=== PATIENT | male | born 1980 | race African-American/Black ===

== ENCOUNTER 2016-10-11 10:23 | Inpatient (IN) | payer BC ==
[2016-10-11 10:36] VITALS: BMI 22.4
[2016-10-11] MEDS ORDERED: ONDANSETRON 4 MG/2 ML VIAL IVPB ONE (11:08)
[2016-10-11] MEDS ORDERED: SODIUM CHLORIDE 1,000 ML IV ONE ×2 (11:08→12:14)
[2016-10-11] MEDS ORDERED: FAMOTIDINE 20 MG/50 ML IVPB 50 ML IVPB ONE ×2 (11:08→11:20)
[2016-10-11] MEDS ORDERED: ONDANSETRON 4 MG/2 ML VIAL ONE (11:20)
[2016-10-11 11:25] LABS: MCH 24.8 pg (25.7-33.7); MCHC 33.3 g/dl (32.0-35.9); MEAN CELL VOLUME 74.5 fl (80-96); MEAN PLT VOLUME 7.1 fl (7.5-11.1); PLATELET COUNT 338 K/MM3 (134-434); RDW 14.5 % (11.9-15.9); WHITE BLOOD COUNT 3.5 K/mm3 (4.0-10.0)
--- NOTE | 2016-10-11 11:35 | PDOC ---
History of Present Illness - General History Source: Patient Exam Limitations: No Limitations - History of Present Illness Initial Comments: 10/11/16 11:44 The patient is a 36-year-old man with a past medical history of nasopharyngeal Ca (since age 10; was on chemotherapy and radiation; now in remission)who presents to the emergency department for evaluation of generalized weakness for the past 4 days. As per patient, he reports he was recently getting over a sinus infection for which he took 875 mg of Augmentin. His prescribed dosage was 1 tablet BID, however the patient took 2 tablets BID, (overall intake of 5 double doses). He reports that he started taking his Augmentin regularly since , however he vomited this morning's dose. Patient notes that approximately four days ago, he started to experience diffuse abdominal discomfort with associated nausea, vomiting and loose watery stools (dark green in appearance; no blood). Patient states that his symptoms have progressively worsened as he feels generally weak, experiences chills and is unable to tolerate anything PO. He expresses concern as if his symptoms are related to taking too much Augmentin. Patient also admits to sick contacts, as his fellow co-workers are experiencing cold-like symptoms. No new foods. He recently traveled to [facility] (May 2016). No other complaints. He denies chest pain, cough, shortness of breath, headache He denies dysuria, hematuria, urinary frequency/urgency, flank pain. Allergies: None Known Past Surgical History: None reported Social History: No tobacco, ETOH and recreational drug use. Primary Care Physician: Located at [facility]. <Gracia Marquis - Last Filed: 10/11/16 11:47> <Miguel Sher - Last Filed: 10/11/16 15:47> - General Chief Complaint: Weakness Stated Complaint: WEAKNESS, VOMITING Time Seen by Provider: 10/11/16 11:03 Past History <Gracia Marquis - Last Filed: 10/11/16 11:47> - Past Medical History Cancer: Yes (SINO NASAL CA) - Psycho/Social/Smoking Cessation Hx Anxiety: No Suicidal Ideation: No Smoking History: Never smoked Have you smoked in the past 12 months: No Hx Alcohol Use: No Drug/Substance Use Hx: No Substance Use Type: None <Miguel Sher - Last Filed: 10/11/16 15:47> - Past Medical History Allergies/Adverse Reactions: Allergies Allergy/AdvReac Type Severity Reaction Status Date / Time No Known Allergies Allergy Verified 10/11/16 10:36 Home Medications: Ambulatory Orders Amoxicillin/Potassium Clav [Amox-Clav 875-125 mg Tablet] 1 each PO BID 10/11/16 Review of Systems - Review of Systems Constitutional: Yes: Chills. No: Fever HEENTM: Yes: Nose Congestion Respiratory: No: Cough, Shortness of Breath Cardiac (ROS): Yes: Lightheadedness. No: Syncope ABD/GI: Yes: See HPI, Diarrhea, Nausea, Vomiting All Other Systems: Reviewed and Negative <Miguel Sher - Last Filed: 10/11/16 15:47> *Physical Exam - Vital Signs Last Vital Signs Temp Pulse Resp BP Pulse Ox 97.7 F 68 20 103/57 100 10/11/16 10:31 10/11/16 10:31 10/11/16 10:31 10/11/16 10:31 10/11/16 10:31 - Physical Exam Comments: 10/11/16 11:45 GENERAL: The patient is awake, alert, and fully oriented, in no acute distress. HEAD: Normal with no signs of trauma. EYES: Pupils equal, round and reactive to light, extraocular movements intact, sclera anicteric, slight conjunctival pallor. ENT: Ears normal, nares patent, oropharynx clear without exudates. Dry mucous membranes. NECK: Normal range of motion, supple without lymphadenopathy, JVD, or masses. LUNGS: Breath sounds equal, clear to auscultation bilaterally. No wheeze/ crackles. HEART: Regular rate and rhythm, normal S1 and S2 without murmur or rub. ABDOMEN: Soft. There is some epigastric discomfort. Nondistended. BS wnl. No guarding or rebound. No palpable masses. No hepatosplenomegaly. EXTREMITIES: Normal range of motion, no edema. No clubbing or cyanosis. No cords, erythema, or tenderness. NEUROLOGICAL: Cranial nerves II through XII grossly intact. Normal speech. PSYCH: Normal mood, normal affect. SKIN: Warm, Dry, normal turgor, no rashes or lesions noted. <Gracia Marquis - Last Filed: 10/11/16 11:47> - Vital Signs Last Vital Signs Temp Pulse Resp BP Pulse Ox 97.7 F 68 20 103/57 100 10/11/16 10:31 10/11/16 10:31 10/11/16 10:31 10/11/16 10:31 10/11/16 10:31 <Miguel Sher - Last Filed: 10/11/16 15:47> Heart Score/ECG Review #1 ECG reviewed & interpreted by me at: 11:29 General ECG Interpretation: Sinus Rhythm, Normal Rate (61), Normal Intervals ( ID [id number], QTC 410), No acute ischemic changes <Miguel Sher - Last Filed: 10/11/16 15:47> ED Treatment Course - LABORATORY CBC & Chemistry Diagram: 10/11/16 11:15 10/11/16 11:15 - ADDITIONAL ORDERS Additional order review: 10/11/16 11:15 RBC 4.05 MCV 74.5 L MCHC 33.3 RDW 14.5 MPV 7.1 L Neutrophils % Y Lymphocytes % Y - Medications Given in the ED: ED Medications Discontinued Medications Generic Name Dose Route Start Last Admin Trade Name Freq PRN Reason Stop Dose Admin Famotidine/Sodium Chloride 50 mls @ 100 mls/hr 10/11/16 11:08 10/11/16 11:20 Pepcid 20 Mg Premixed Ivpb - IVPB 10/11/16 11:37 100 mls/hr ONCE ONE Administration Ondansetron HCl 8 mg 10/11/16 11:08 10/11/16 11:39 Zofran Injection IVPB 10/11/16 11:09 8 mg ONCE ONE Administration <Gracia Marquis - Last Filed: 10/11/16 11:47> - LABORATORY CBC & Chemistry Diagram: 10/11/16 11:15 10/11/16 14:00 - ADDITIONAL ORDERS Additional order review: 10/11/16 11:15 RBC 4.05 MCV 74.5 L MCHC 33.3 RDW 14.5 MPV 7.1 L Neutrophils % Y Lymphocytes % Y <Miguel Sher - Last Filed: 10/11/16 15:47> Medical Decision Making - Medical Decision Making 10/11/16 11:32 A portion of this note was documented by scribe services under my direction. I have reviewed the details of the note, within reason, and agree with the documentation with the following case summary and management plan written by me. 36-year-old male with distant history of nasopharyngeal CA 2011, now in remission, presents with nausea/vomiting/diarrhea in the setting of taking Augmentin for recently diagnosed sinusitis. Generalized crampy abdominal pain, now resolved. Unable to tolerate by mouth, reports persistent nonbloody vomiting and diarrhea and worsening lightheadedness. No travel, positive sick contacts at work, no diet changes. Vitals as noted, had orthostatic episode in triage. Dry mucosa, slight pallor Epigastric discomfort without guarding or rebound 36-year-old male on antibiotics presents with several days of nausea/vomiting/ diarrhea, now with dehydration. Prior generalized abdominal cramping without focal findings on exam. Presentation seems more consistent with acute gastroenteritis, question antibiotic side effect. Check labs IV fluid hydration, antacid, antiemetic EKG shows no interval abnormalities other than first-degree AV block, no acute ischemic changes Reassess 10/11/16 12:11 White count 3.5, Baseline mild anemia with hemoglobin of 10. Chemistries note dehydration with significant hyponatremia of 113, BUN and creatinine are otherwise normal. Received IV fluids, will continue maintenance, will require admission for sodium repletion and monitoring. 10/11/16 12:17 Accepted for inpatient med/surg by Dr. Barber. <Miguel Sher - Last Filed: 10/11/16 15:47> *DC/Admit/Observation/Transfer - Attestations Scribe Attestion: 10/11/16 11:45 Documentation prepared by Gracia Marquis, acting as medical reviewer for Miguel Sher MD. <Gracia Marquis - Last Filed: 10/11/16 11:47> - Discharge Dispostion Admit: Yes <Miguel Sher - Last Filed: 10/11/16 15:47> Diagnosis at time of Disposition: Gastroenteritis, Hyponatremia - Referrals
--- NOTE | 2016-10-11 11:46 | EKG ---
Test Reason : Blood Pressure : / mmHG Vent. Rate : 061 BPM Atrial Rate : 061 BPM P-R Int : 232 ms QRS Dur : 090 ms QT Int : 408 ms P-R-T Axes : 051 079 068 degrees QTc Int : 410 ms SINUS RHYTHM WITH 1ST DEGREE A-V BLOCK OTHERWISE NORMAL ECG WHEN COMPARED WITH ECG OF 04-OCT-2015 11:46, NM INTERVAL HAS INCREASED Confirmed by MARY العراقي, REHANA ([id number]) on 10/11/2016 11:45:57 AM Referred By: Confirmed By:REHANA HERNANDEZ MD
[2016-10-11 11:57] LABS: ALBUMIN 3.5 g/dl (3.4-5.0); ALK PHOS 102 U/L (45-117); ANION GAP 13 (8-16); BILIRUBIN,TOTAL 0.5 mg/dL (0.2-1.0); CALCIUM 8.7 mg/dL (8.5-10.1); CO2 22 mmol/L (21-32); CREATININE 1.1 mg/dL (0.7-1.3); GLUCOSE,RANDOM 89 mg/dL (74-106); SGOT/AST 23 U/L (15-37); SGPT/ALT 19 U/L (12-78); TOT PROT 7.5 g/dl (6.4-8.2)
[2016-10-11 13:02] LABS: METAMYELOCYTE 2 % (0-2)
--- NOTE | 2016-10-11 13:15 | HP ---
CHIEF COMPLAINT: Weakness HISTORY OF PRESENT ILLNESS: This is a 36-year-old man who comes to the ER today complaining of weakness. He says that he was recently diagnosed with sinusitis. He was prescribed Augmentin 875 twice a day for 14 days. When he filled the prescription on October 02, the instructions were to take two tabs twice a day for 14 days. He was given 28 tablets. For the first 6 doses, he took two tabs, then he spoke with his physician who told him the prescription was supposed to be 1 tab twice a day. He advised him to continue with the medication using the appropriate dosing. For the last 4 days, he has been experiencing abdominal pain , nausea, vomiting and diarrhea. His symptoms have worsened, and now he is experiencing fatigue, weakness and chills. He has been unable to keep anything down. PAST MEDICAL HISTORY Nasopharyngeal cancer (diagnosed in 2011, treated with chemo/XRT, in remission, follows at [facility]) PAST SURGICAL HISTORY Mediport placement Allergies No Known Allergies Allergy (Verified 10/11/16 10:36) HOME MEDICATIONS 3 Medication Instructions Recorded Amoxicillin/Potassium Clav 1 each PO BID 10/11/16 [Amox-Clav 875-125 mg Tablet] Social History: Smoking: Never smoked Alcohol: Denies Drugs: Denies Recent Travel: [facility] in May 2016 Family History: Non-contributory REVIEW OF SYSTEMS CONSTITUTIONAL: Present: chills, generalized weakness. Absent: fever, diaphoresis, malaise, loss of appetite, weight change HEENT: Absent: rhinorrhea, nasal congestion, throat pain, throat swelling, difficulty swallowing, mouth swelling, ear pain, eye pain, visual changes CARDIOVASCULAR: Absent: chest pain, syncope, palpitations, lightheadedness, peripheral edema RESPIRATORY: Absent: cough, shortness of breath, dyspnea with exertion, orthopnea, wheezing, stridor, hemoptysis GASTROINTESTINAL: Present: abdominal pain, nausea, vomiting, diarrhea. Absent: abdominal distension, nausea, vomiting, diarrhea, constipation, melena, hematochezia GENITOURINARY: Absent: dysuria, frequency, urgency, hesitancy, hematuria, flank pain, genital pain MUSCULOSKELETAL: Absent: myalgia, arthralgia, joint swelling, back pain, neck pain SKIN: Absent: rash, itching, pallor HEMATOLOGIC/IMMUNOLOGIC: Absent: easy bleeding, easy bruising, lymphadenopathy, frequent infections ENDOCRINE: Absent: unexplained weight gain, unexplained weight loss, heat intolerance, cold intolerance NEUROLOGIC: Absent: headache, focal weakness or paresthesias, dizziness, unsteady gait, seizure, mental status changes, bladder or bowel incontinence PSYCHIATRIC: Absent: anxiety, depression, suicidal or homicidal ideation, hallucinations. PHYSICAL EXAMINATION Vital Signs Period Temp Pulse Resp BP Sys/Stein Pulse Ox Last 24 Hr 97.7 F 68 20 103/57 100 GENERAL: Awake, alert, and fully oriented, in no acute distress. HEAD: Normal with no signs of trauma. EYES: Pupils equal, round and reactive to light, extraocular movements intact, sclerae anicteric, conjunctivae clear. EARS, NOSE, THROAT: Ears normal, nares patent, oropharynx clear without exudates. Moist mucous membranes. NECK: Normal range of motion, supple without lymphadenopathy, JVD, or masses. LUNGS: Breath sounds equal, clear to auscultation bilaterally. No wheezes, and no crackles. No accessory muscle use. HEART: Regular rate and rhythm, normal S1 and S2 without murmur, rub or gallop. ABDOMEN: Soft, nontender, not distended, normoactive bowel sounds, no guarding, no rebound, no masses. No hepatomegaly or splenomegaly. MUSCULOSKELETAL: Normal range of motion at all joints. No bony deformities or tenderness. No CVA tenderness. UPPER EXTREMITIES: 2+ pulses, warm, well-perfused. No cyanosis. No clubbing. Cap refill <2 seconds. No peripheral edema. LOWER EXTREMITIES: 2+ pulses, warm, well-perfused. No calf tenderness. No peripheral edema. NEUROLOGICAL: Cranial nerves II-XII intact. Normal speech. Gait not observed. PSYCHIATRIC: Cooperative. Good eye contact. Appropriate mood and affect. SKIN: Warm, dry, normal turgor, no rashes or lesions noted. Laboratory Results - last 24 hr 10/11/16 10/11/16 11:15 11:15 WBC 3.5 L D RBC 4.05 Hgb 10.0 L Hct 30.1 L MCV 74.5 L MCHC 33.3 RDW 14.5 Plt Count 338 MPV 7.1 L Neutrophils % 59.0 D Lymphocytes % 30.0 D Monocytes % 4.0 Eosinophils % 4.0 D Metamyelocytes 2 Myelocytes 1 Differential Comment Manual diff done Sodium 113 L* D Potassium 3.8 Chloride 78 L D Carbon Dioxide 22 D Anion Gap 13 BUN 11 D Creatinine 1.1 D Creat Clearance w eGFR > 60 Random Glucose 89 D Calcium 8.7 Total Bilirubin 0.5 D AST 23 ALT 19 Alkaline Phosphatase 102 Total Protein 7.5 Albumin 3.5 Lipase 51 L EKG: Sinus rhythm, rate 61 ASSESSMENT/PLAN: This is a 36-year-old man with a history of naopharyngeal cancer treated with chemotherapy and radiation therapy at [facility] who presented to the ER with fatigue , weakness, chills, epigastric pain, nausea and vomiting. He has been taking Augmentin since 10/02 for sinusitis. He was found to have a sodium of 113. He is being admitted now for treatment of an emergent condition. 1. Severe hyponatremia - Asymptomatic and appears euvolemic - Admit to ICU - Repeat sodium - Check serum osmolality, urine lytes, urine osmolality - Continue IV normal saline - Discontinue Augmentin - Check chest x-ray - Serial BMPs - Critical care, nephrology consults 2. Abdominal pain, nausea, vomiting, diarrhea - Likely secondary to hyponatremia, Augmentin - IV fluid - Clear liquid diet - Zofran as needed Problem List - Problem (1) Chills Code(s): R68.83 - CHILLS (WITHOUT FEVER) (2) History of nasopharyngeal cancer Code(s): Z85.819 - PRSNL HX OF MALIG NEOPLM OF UNSP SITE LIP,ORAL CAV,& PHARYNX (3) Nausea, vomiting and diarrhea Code(s): R11.2 - NAUSEA WITH VOMITING, UNSPECIFIED R19.7 - DIARRHEA, UNSPECIFIED Visit type - Emergency Visit Emergency Visit: Yes ED Registration Date: 10/11/16 Care time: The patient presented to the Emergency Department on the above date and was hospitalized for further evaluation of their emergent condition. - New Patient This patient is new to me today: Yes Date on this admission: 10/11/16 - Critical Care Critical Care patient: Yes Total Critical Care Time (in minutes): 45 Critical Care Statement: The care of this patient involved high complexity decision making to prevent further life threatening deterioration of the patient 's condition and/or to evalute & treat vital organ system(s) failure or risk of failure.
[2016-10-11] MEDS ORDERED: ACETAMINOPHEN 325 MG TABLET (FP) PO PRN (13:23)
[2016-10-11] MEDS ORDERED: ONDANSETRON 4 MG/2 ML VIAL IVPB PRN (13:23)
[2016-10-11 14:51] LABS: CALCIUM 8.4 mg/dL (8.5-10.1); CREATININE 1.1 mg/dL (0.7-1.3)
--- NOTE | 2016-10-11 15:17 | CONSULT ---
Consult Consult Specialty:: pulm/CCM Referred by:: Dr. Barber Reason for Consultation:: Severe hyponatremia - History of Present Illness Chief Complaint: Vomting weakness History of Present Illness: 36M history of nasopharyngeal Ca since 2011, in remission followed at [facility], come to ED with Chief complaint of weakness and vomiting. Recently had CT scan at [facility] for surveillance and everything ok from cancer standpoint but was found to have sinusitis and was prescribed augmentin. patient took double the dose for 6 days as the prescription per patient said to do so but upon talking to MD who prescribed he was supposed to take 1 tab. For the past 4 days he has been complaining of abdominal pain, nausea, vomiting and diarrhea. he has been unable to tolerate PO as well. he has been having NB/NB vomiting. he also endorses worsening symptoms with chills but denies fever. He denies dizziness or any other symptoms. Denies substance abuse. denies polydipsia. Found to have severe hyponatremia in ED with sodium of 113. admitted to ICU for monitoring. - History Source History Provided By: Patient Limitations to Obtaining History: No Limitations - Past Medical History Heme/Onc: Yes: Other (nasopharyngeal Ca since 2011 in remission ) - Alcohol/Substance Use Hx Alcohol Use: No - Smoking History Smoking history: Never smoked Have you smoked in the past 12 months: No Home Medications - Allergies Allergies/Adverse Reactions: Allergies Allergy/AdvReac Type Severity Reaction Status Date / Time No Known Allergies Allergy Verified 10/11/16 10:36 - Home Medications Home Medications: Ambulatory Orders Amoxicillin/Potassium Clav [Amox-Clav 875-125 mg Tablet] 1 each PO BID 10/11/16 Review of Systems - Review of Systems Constitutional: reports: Chills Eyes: reports: No Symptoms HENT: reports: No Symptoms Neck: reports: No Symptoms Cardiovascular: reports: No Symptoms Respiratory: reports: No Symptoms Gastrointestinal: reports: Abdominal Pain, Nausea, Vomiting Genitourinary: denies: No Symptoms, Burning, Discharge, Dysuria, Flank Pain, Frequency, Hematuria, Incontinence, Lesions, Menses, Pain, Testicular Mass, Testicular Pain, Testicular Swelling, Urgency, Vaginal Bleeding, Other Musculoskeletal: denies: No Symptoms, Back Pain, Crepitus, Decreased ROM, Extremity Pain, Joint Pain, Joint Swelling, Muscle Pain, Muscle Cramps, Muscle Weakness, Other Neurological: denies: No Symptoms, Change in LOC, Change in Speech, Confusion, Dizziness, Headache, Incoordination, Numbness, Parasthesia, Pre-Existing Deficit , Seizure, Syncope, Tremors, Unsteady Gait, Weakness, Other Endocrine: denies: No Symptoms, Excessive Sweating, Flushing, Increased Hunger, Increased Thirst, Intolerance to Cold, Intolerance to Heat, Unexplained Weight Gain, Unexplained Weight Loss, Other Physical Exam Vital Signs: Vital Signs Temperature 97.9 F 10/11/16 14:30 Pulse Rate 68 10/11/16 14:30 Respiratory Rate 19 10/11/16 14:30 Blood Pressure 120/74 10/11/16 14:30 O2 Sat by Pulse Oximetry (%) 100 10/11/16 14:30 Constitutional: Yes: Well Nourished, No Distress, Calm Eyes: Yes: Conjunctiva Clear, EOM Intact HENT: Yes: WNL, Atraumatic, Normocephalic Neck: Yes: Supple, Trachea Midline Cardiovascular: Yes: Regular Rate and Rhythm Respiratory: Yes: CTA Bilaterally Gastrointestinal: Yes: Soft. No: Tenderness Musculoskeletal: Yes: WNL Extremities: Yes: WNL Edema: No Neurological: Yes: WNL, Alert, Oriented, Cran Nerves II-XII Intact, Other ( global muscle strength 5/5 and symmetric) Labs: CBC, [facility] 10/11/16 14:00 Imaging - Results Chest X-ray: Pending Assessment/Plan 36M with pmh of nasopharyngeal Ca in remission here with nausea vomiting and found to have severe symptomatic hyponatremia. Severe hyponatremia which is symptomatic with nausea and vomiting. Patient has euvolemic hyponatremia symptomatic with nausea and vomiting It is possible patient has a paraneoplatic syndrome given his Ca but it is unlikely given he is monitored at [facility] and has not had any relapse of his Ca and had recent CT which did not show Ca will get CXR to evaluate any suspicion of mets to the chest Could Be SIADH will consider neuroimaging and desmopressin in future for now normal saline @ 125ml/hr Do not allow sodium to go above 123 for 24 hours q4h [facility] Patient recently on augmentin-discontinued as of today during my research it was found there are a few documented cases of hyponatremia secondary to augmentin although this is rare it is possible given the fact he was taking double the dose and then developed these symptoms Zofran will consider endocrine consult in future if refractory f/u nephrology consult Diarrhea:improving per patient do not suspect infectious source such as C dif or colitis no need for Abx at this time monitor Nasopharyngeal Ca: patient has follow up and is compliant outpt follow up FEN: NS @ 125ml/hr Hyperkalemia hyponatremia-trend BMP q4h CLD PPx: HSQ no GI PPx needed no deconditioning issues CCTime 45min
[2016-10-11] MEDS ORDERED: SODIUM CHLORIDE 1,000 ML IV SCH (16:15)
--- NOTE | 2016-10-11 19:14 | CONSULT ---
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 He says that the cancer is in remission. He was treated with radiation and chemotherapy. He last had a ct scan of the head about one week ago and was negative for re-occurrence. It did however show some sinusitis. He was given augmentin. He was taking 2 tabs BID as that is what the bottle said to do. He developed abdominal discomfort and diarrhea. He had multiple episodes of diarrhea for several days. This was alos accompanied with vomiting. He denies fever or chills. He complains of generalized weakness. He was found to be hyponatremic and I was called to evaluate him as stat consult. He denies headache. He is awake and alert. He denies change in vision. He denies history of hyponatremia. - History Source History Provided By: Patient, Medical Record - Past Medical History Heme/Onc: Yes: Other (sinus cancer) Infectious Disease: Yes: Other (sinusitis) - Alcohol/Substance Use Hx Alcohol Use: No - Smoking History Smoking history: Never smoked Have you smoked in the past 12 months: No Home Medications - Allergies Allergies/Adverse Reactions: Allergies Allergy/AdvReac Type Severity Reaction Status Date / Time No Known Allergies Allergy Verified 10/11/16 10:36 - Home Medications Home Medications: Ambulatory Orders Amoxicillin/Potassium Clav [Amox-Clav 875-125 mg Tablet] 1 each PO BID 10/11/16 Family Disease History - Family Disease History Family History: Denies Review of Systems - Review of Systems Constitutional: reports: Loss of Appetite, Malaise, Weakness Eyes: reports: No Symptoms HENT: reports: No Symptoms Neck: reports: No Symptoms Cardiovascular: reports: No Symptoms Respiratory: reports: No Symptoms Gastrointestinal: reports: Abdominal Pain, Diarrhea, Vomiting. denies: Vomiting Blood Genitourinary: reports: No Symptoms Musculoskeletal: reports: Muscle Weakness Neurological: reports: No Symptoms Endocrine: reports: No Symptoms Hematology/Lymphatic: reports: No Symptoms Psychiatric: reports: No Symptoms Physical Exam Vital Signs: Vital Signs Temperature 97.9 F 10/11/16 14:30 Pulse Rate 67 10/11/16 17:40 Respiratory Rate 18 01/18/17 17:40 Blood Pressure 124/85 01/18/17 17:40 O2 Sat by Pulse Oximetry (%) 100 10/11/16 18:00 Constitutional: Yes: Calm Eyes: Yes: Conjunctiva Clear HENT: Yes: Atraumatic Cardiovascular: Yes: S1, S2 Respiratory: Yes: CTA Bilaterally Gastrointestinal: Yes: Soft Renal/: Yes: WNL Musculoskeletal: Yes: WNL Extremities: Yes: WNL Edema: No Neurological: Yes: Oriented Psychiatric: Yes: Oriented Labs: Laboratory Tests 10/04/15 10/11/16 10/11/16 09:00 11:15 11:15 WBC 3.5 L D Hgb 10.0 L Plt Count 338 Sodium 138 113 L* D Potassium 3.8 Chloride 78 L D Carbon Dioxide 22 D Anion Gap 13 BUN 11 D Creatinine 1.1 D Serum Osmolality Calcium 8.7 AST 23 ALT 19 Alkaline Phosphatase 102 Total Protein 7.5 Albumin 3.5 Lipase 51 L 10/11/16 10/11/16 14:00 14:00 WBC Hgb Plt Count Sodium 115 L* Potassium 5.4 H D Chloride 81 L Carbon Dioxide 23 Anion Gap 11 BUN 10 Creatinine 1.1 Serum Osmolality 241 L Calcium 8.4 L AST ALT Alkaline Phosphatase Total Protein Albumin Lipase Imaging - Results Chest X-ray: Image Reviewed Problem List - Problems (1) Abdominal pain Code(s): R10.9 - UNSPECIFIED ABDOMINAL PAIN Qualifiers: Abdominal location: epigastric Qualified Code(s): R10.13 - Epigastric pain (2) Chills Code(s): R68.83 - CHILLS (WITHOUT FEVER) (3) Hyponatremia Code(s): E87.1 - HYPO-OSMOLALITY AND HYPONATREMIA (4) Nausea, vomiting and diarrhea Code(s): R11.2 - NAUSEA WITH VOMITING, UNSPECIFIED R19.7 - DIARRHEA, UNSPECIFIED (5) History of nasopharyngeal cancer Code(s): Z85.819 - PRSNL HX OF MALIG NEOPLM OF UNSP SITE LIP,ORAL CAV,& PHARYNX (6) Anemia Code(s): D64.9 - ANEMIA, UNSPECIFIED (7) Hyperkalemia Code(s): E87.5 - HYPERKALEMIA Assessment/Plan Current Medications Generic Name Dose Route Start Last Admin Trade Name Freq PRN Reason Stop Dose Admin Acetaminophen 650 mg 10/11/16 13:23 Tylenol - PO Q4H PRN FEVER OR PAIN Chlorhexidine Gluconate 1 applic 10/11/16 22:00 Hibiclens For Decolonization - TP HS MAHAD Heparin Sodium (Porcine) 5,000 unit 10/11/16 22:00 Heparin - SQ TID MAHAD Sodium Chloride 1,000 mls @ 125 mls/hr 10/11/16 16:15 10/11/16 16:03 Normal Saline - IV 125 mls/hr ASDIR MAHAD Administration Mupirocin 1 applic 10/11/16 22:00 Bactroban Ointment (For Decolonization) - NS 10/16/16 21:59 BID MAHAD Ondansetron HCl 4 mg 10/11/16 13:23 Zofran Injection IVPB Q4H PRN NAUSEA Impression 1. hyponatremia 2. hyperkalemia 3. anemia 4. history of nasopharyngeal cancer 5. diarrhea 6. vomiting 7. leukopenia Plan - likely etiology of hyponatremia is volume and salt depletion - check urine and plasma osm - check urine sodium - ordered tsh and cortisol - cont with normal saline - sodium improved from 113 to 115 - repeat bmp ordered stat, please call with results - admit pt to ICU - check bmp q 4 hours - avoid a change of sodium of greater than 10 meq in 24 hours - keep on monitor - diarrhea and vomiting have resolved - augmentin held as he was taking double the dose - dvt prophylaxis - will follow closely Thank you for this consultation Dr Link
[2016-10-11 20:42] LABS: ALBUMIN 3.3 g/dl (3.4-5.0); ALK PHOS 103 U/L (45-117); ANION GAP 8 (8-16); BILIRUBIN,TOTAL 0.5 mg/dL (0.2-1.0); CALCIUM 8.5 mg/dL (8.5-10.1); CO2 22 mmol/L (21-32); CREATININE 1.2 mg/dL (0.7-1.3); GLUCOSE,RANDOM 97 mg/dL (74-106); SGOT/AST 21 U/L (15-37); SGPT/ALT 18 U/L (12-78); TOT PROT 7.2 g/dl (6.4-8.2)
[2016-10-11 21:08] LABS: OSMOLALITY,SERUM 240 mosm/kg (278-305)
--- NOTE | 2016-10-11 21:10 | CONSULT ---
Consult Consult Specialty:: Pulm/CC - History of Present Illness Chief Complaint: weakness History of Present Illness: Pt is a 36yr old man with PMHx of naso-sinus cancer s/p radiation and chemotherapy in 2011. Pt state he just finished a course of Augmentin on 10/10 for a sinus infection. Pt presents to the ER with CC of vomiting/diarrhea x 4 days. Pt found to serum sodium of 113, wbc 3.5 and hgb 10. Pt admitted to the ICU for further management. - History Source History Provided By: Patient, Medical Record Limitations to Obtaining History: No Limitations - Past Medical History Infectious Disease: Yes: Other (sinusitis) - Alcohol/Substance Use Hx Alcohol Use: No - Smoking History Smoking history: Never smoked Have you smoked in the past 12 months: No Home Medications - Allergies Allergies/Adverse Reactions: Allergies Allergy/AdvReac Type Severity Reaction Status Date / Time No Known Allergies Allergy Verified 10/11/16 10:36 - Home Medications Home Medications: Ambulatory Orders Amoxicillin/Potassium Clav [Amox-Clav 875-125 mg Tablet] 1 each PO BID 10/11/16 Review of Systems - Review of Systems Constitutional: reports: Weakness HENT: reports: Epistaxis, Nasal Congestion Cardiovascular: denies: Chest Pain, Shortness of Breath Respiratory: denies: SOB, Wheezing Gastrointestinal: reports: Diarrhea, Nausea, Vomiting Genitourinary: denies: Dysuria Neurological: reports: Headache Physical Exam Vital Signs: Abnormal Lab Results 10/11/16 10/11/16 10/11/16 11:15 11:15 14:00 WBC 3.5 L D Hgb 10.0 L Hct 30.1 L MCV 74.5 L MPV 7.1 L Sodium 113 L* D 115 L* Potassium 5.4 H D Chloride 78 L D 81 L Serum Osmolality Calcium 8.4 L Albumin Lipase 51 L 10/11/16 10/11/16 14:00 20:00 WBC Hgb Hct MCV MPV Sodium 114 L* Potassium 5.5 H Chloride 84 L Serum Osmolality 241 L Calcium Albumin 3.3 L Lipase Constitutional: Yes: Well Nourished, No Distress, Calm Eyes: Yes: WNL HENT: Yes: Nasal Congestion, Other (dried blood in mouth/oropharynx/nostrils. maxillary sinus swelling and tenderness) Cardiovascular: Yes: S1, S2, Other (sinus on tele) Respiratory: Yes: CTA Bilaterally Gastrointestinal: Yes: Normal Bowel Sounds. No: Tenderness ...Rectal Exam: Yes: Deferred Musculoskeletal: Yes: WNL Extremities: Yes: WNL Edema: No Peripheral Pulses WNL: Yes (+2 bilateral pedal pulses) Integumentary: Yes: WNL Neurological: Yes: WNL Psychiatric: Yes: WNL Labs: Abnormal Lab Results 10/11/16 10/11/16 10/11/16 11:15 11:15 14:00 WBC 3.5 L D Hgb 10.0 L Hct 30.1 L MCV 74.5 L MPV 7.1 L Sodium 113 L* D 115 L* Potassium 5.4 H D Chloride 78 L D 81 L Serum Osmolality Calcium 8.4 L Albumin Lipase 51 L 10/11/16 10/11/16 10/11/16 14:00 19:20 20:00 WBC Hgb Hct MCV MPV Sodium 114 L* Potassium 5.5 H Chloride 84 L Serum Osmolality 241 L 240 L Calcium Albumin 3.3 L Lipase Imaging - Results Chest X-ray: Report Reviewed, Image Reviewed Assessment/Plan Pt is a 36yr old man with PMHx of naso-sinus cancer s/p radiation and chemotherapy in 2011. Now in the ICU for management of severe hyponatremia and hyperkalemia. Pulm: -o2 support prn for sat >94% -Incentive spirometer Renal: -Dr. Link following -IVF per renal -BMP q3 -Na not to correct more than 10mEq/24hr period -d50/10u insulin/calcium for K prn -f/u TSH and cortisol level Onc: -Consult -Consider facial CT GI: -Consult -Stool study -PPI Cardiology -Monitor h/h -Transfuse prn ID: -f/u influenza swab -Monitor off antibiotics for now Neuro -Seizure precautions -Pain management Prophylactic -DVT
[2016-10-11] MEDS: HEPARIN NA (PORCINE) 5,000 UNITS/ML 1ML VIAL SQ SCH (21:40)
[2016-10-11] MEDS: MUPIROCIN 2% TOPICAL OINTMENT FOR DECOLONIZATION NS SCH (21:41)
[2016-10-11] MEDS: CHLORHEXIDINE GLUCONATE 4% CLEANSER FOR DECOLONIZATION TP SCH (21:41)
[2016-10-11 22:03] LABS: BASOPHIL 1.1 % (0-2.0); EOSINOPHIL 1.4 % (0-4.5); MCH 24.9 pg (25.7-33.7); MCHC 33.6 g/dl (32.0-35.9); MEAN CELL VOLUME 74.1 fl (80-96); MEAN PLT VOLUME 7.7 fl (7.5-11.1); NEUTROPHILS 75.2 % (42.8-82.8); PLATELET COUNT 305 K/MM3 (134-434); RDW 14.9 % (11.9-15.9); WHITE BLOOD COUNT 4.2 K/mm3 (4.0-10.0)
[2016-10-11 22:45] LABS: CALCIUM 8.1 mg/dL (8.5-10.1); CREATININE 1.1 mg/dL (0.7-1.3)
[2016-10-12 01:57] LABS: URINE APPEARANCE CLEAR; URINE BILIRUBIN NEGATIVE (NEGATIVE); URINE BLOOD NEGATIVE (NEGATIVE); URINE COLOR COLORLESS; URINE GLUCOSE (UA) NEGATIVE (NEGATIVE); URINE KETONE NEGATIVE (NEGATIVE); URINE LEUK ESTERASE NEGATIVE (NEGATIVE); URINE NITRITE NEGATIVE (NEGATIVE); URINE PROTEIN NEGATIVE (NEGATIVE); URINE UROBILINOGEN NEGATIVE E.U./dl (0.2-1.0)
[2016-10-12] MEDS: SODIUM CHLORIDE 1,000 ML IV SCH ×4 (04:00→17:32)
[2016-10-12] MEDS: HEPARIN NA (PORCINE) 5,000 UNITS/ML 1ML VIAL SQ SCH ×3 (06:18→22:03)
[2016-10-12 07:05] LABS: ALBUMIN 3.5 g/dl (3.4-5.0); ANION GAP 10 (8-16); CALCIUM 8.2 mg/dL (8.5-10.1); CO2 22 mmol/L (21-32); CREATININE 1.2 mg/dL (0.7-1.3); GLUCOSE,RANDOM 69 mg/dL (74-106); MAGNESIUM 1.9 mg/dL (1.8-2.4); SGOT/AST 22 U/L (15-37); SGPT/ALT 19 U/L (12-78)
[2016-10-12 07:14] LABS: ALK PHOS 102 U/L (45-117); BILIRUBIN,TOTAL 0.5 mg/dL (0.2-1.0); THYROID STIMULATING HORMONE 5.18 uIU/ml (0.358-3.74)
[2016-10-12 09:54] LABS: FREE T4 0.91 ng/dl (0.76-1.16)
[2016-10-12] MEDS: MUPIROCIN 2% TOPICAL OINTMENT FOR DECOLONIZATION NS SCH ×2 (09:57→22:03)
--- NOTE | 2016-10-12 11:00 | PN ---
Progress Note, Physician History of Present Illness: Pt seen and examined at bedside. He is awake and alert. He says he feels much better today. He denies shortness of breath. He says the diarrhea and vomiting have resolved. He is tolerating clears and is asking for regular food. - Current Medication List Current Medications: Active Medications Acetaminophen (Tylenol -) 650 mg PO Q4H PRN PRN Reason: FEVER OR PAIN Chlorhexidine Gluconate (Hibiclens For Decolonization -) 1 applic TP HS [facility] Last Admin: 10/11/16 21:41 Dose: 1 applic Heparin Sodium (Porcine) (Heparin -) 5,000 unit SQ TID [facility] Last Admin: 10/12/16 06:18 Dose: 5,000 unit Sodium Chloride (Normal Saline -) 1,000 mls @ 150 mls/hr IV ASDIR [facility] Last Admin: 10/12/16 08:55 Dose: 150 mls/hr Mupirocin (Bactroban Ointment (For Decolonization) -) 1 applic NS BID [facility] Stop: 10/16/16 21:59 Last Admin: 10/12/16 09:57 Dose: 1 applic Ondansetron HCl (Zofran Injection) 4 mg IVPB Q4H PRN PRN Reason: NAUSEA - Objective Vital Signs: Vital Signs Temperature 98.2 F 10/12/16 10:00 Pulse Rate 66 10/12/16 10:00 Respiratory Rate 18 10/12/16 10:00 Blood Pressure 112/85 10/12/16 10:00 O2 Sat by Pulse Oximetry (%) 100 10/12/16 09:00 Constitutional: Yes: Calm Eyes: Yes: Conjunctiva Clear HENT: Yes: Atraumatic Neck: Yes: Supple Cardiovascular: Yes: S1, S2 Respiratory: Yes: CTA Bilaterally Gastrointestinal: Yes: Normal Bowel Sounds, Soft Genitourinary: Yes: WNL Musculoskeletal: Yes: WNL Edema: No Neurological: Yes: Oriented Psychiatric: Yes: Oriented Labs: CBC, BMP 10/11/16 21:20 10/12/16 05:05 Problem List - Problems (1) Abdominal pain Code(s): R10.9 - UNSPECIFIED ABDOMINAL PAIN Qualifiers: Abdominal location: epigastric Qualified Code(s): R10.13 - Epigastric pain (2) Chills Code(s): R68.83 - CHILLS (WITHOUT FEVER) (3) Hyponatremia Code(s): E87.1 - HYPO-OSMOLALITY AND HYPONATREMIA (4) Nausea, vomiting and diarrhea Code(s): R11.2 - NAUSEA WITH VOMITING, UNSPECIFIED R19.7 - DIARRHEA, UNSPECIFIED (5) History of nasopharyngeal cancer Code(s): Z85.819 - PRSNL HX OF MALIG NEOPLM OF UNSP SITE LIP,ORAL CAV,& PHARYNX (6) Anemia Code(s): D64.9 - ANEMIA, UNSPECIFIED (7) Hyperkalemia Code(s): E87.5 - HYPERKALEMIA Assessment/Plan Current Medications Generic Name Dose Route Start Last Admin Trade Name Freq PRN Reason Stop Dose Admin Acetaminophen 650 mg 10/11/16 13:23 Tylenol - PO Q4H PRN FEVER OR PAIN Chlorhexidine Gluconate 1 applic 10/11/16 22:00 10/11/16 21:41 Hibiclens For Decolonization - TP 1 applic HS MAHAD Administration Heparin Sodium (Porcine) 5,000 unit 10/11/16 22:00 10/12/16 06:18 Heparin - SQ 5,000 unit TID MAHAD Administration Sodium Chloride 1,000 mls @ 150 mls/hr 10/12/16 03:24 10/12/16 08:55 Normal Saline - IV 150 mls/hr ASDIR MAHAD Administration Mupirocin 1 applic 10/11/16 22:00 10/12/16 09:57 Bactroban Ointment (For Decolonization) - NS 10/16/16 21:59 1 applic BID MAHAD Administration Ondansetron HCl 4 mg 10/11/16 13:23 Zofran Injection IVPB Q4H PRN NAUSEA Impression 1. hyponatremia 2. hyperkalemia 3. anemia 4. history of nasopharyngeal cancer 5. diarrhea 6. vomiting 7. leukopenia Plan - sodium is improving - will draw stat bmp now and evaluate sodium - cont fluids at 100 cc until I get the results - wnc is improved - pt has a microcytic anemia, will need workup, can send iron levels for now - likely etiology of hyponatremia is volume and salt depletion - urine sodium and osm were checked after pt was given several liters of fluids - check bmp q 4 hours - avoid a change of sodium of greater than 10 meq in 24 hours - dvt prophylaxis - will follow closely - please advance pts diet to a regular diet, do not salt restrict please - potassium is stable Thank you for this consultation Dr Link
[2016-10-12 11:46] LABS: CALCIUM 8.6 mg/dL (8.5-10.1); CREATININE 1.2 mg/dL (0.7-1.3)
[2016-10-12] MEDS ORDERED: SODIUM CHLORIDE 1,000 ML IV SCH (11:49)
--- NOTE | 2016-10-12 12:10 | PN ---
Progress Note, Physician History of Present Illness: feels better denies diarrhea nausea or vomiting hungry states has appetite back - Current Medication List Current Medications: Active Medications Acetaminophen (Tylenol -) 650 mg PO Q4H PRN PRN Reason: FEVER OR PAIN Chlorhexidine Gluconate (Hibiclens For Decolonization -) 1 applic TP HS [facility] Last Admin: 10/11/16 21:41 Dose: 1 applic Heparin Sodium (Porcine) (Heparin -) 5,000 unit SQ TID [facility] Last Admin: 10/12/16 06:18 Dose: 5,000 unit Sodium Chloride (Normal Saline -) 1,000 mls @ 125 mls/hr IV ASDIR [facility] Mupirocin (Bactroban Ointment (For Decolonization) -) 1 applic NS BID [facility] Stop: 10/16/16 21:59 Last Admin: 10/12/16 09:57 Dose: 1 applic Ondansetron HCl (Zofran Injection) 4 mg IVPB Q4H PRN PRN Reason: NAUSEA - Objective Vital Signs: Vital Signs Temperature 98.2 F 10/12/16 10:00 Pulse Rate 66 10/12/16 10:00 Respiratory Rate 18 10/12/16 10:00 Blood Pressure 112/85 10/12/16 10:00 O2 Sat by Pulse Oximetry (%) 100 10/12/16 09:00 Constitutional: Yes: Well Nourished, No Distress, Calm Eyes: Yes: Conjunctiva Clear, EOM Intact HENT: Yes: WNL, Atraumatic, Normocephalic Neck: Yes: Supple, Trachea Midline Cardiovascular: Yes: Regular Rate and Rhythm Respiratory: Yes: CTA Bilaterally Gastrointestinal: Yes: Soft. No: Tenderness Musculoskeletal: Yes: WNL Extremities: Yes: WNL Edema: No Neurological: Yes: WNL, Alert, Oriented, Cran Nerves II-XII Intact, Other ( global muscle strength 5/5 and symmetric) Labs: CBC, BMP 10/11/16 21:20 10/12/16 11:05 Assessment/Plan 36M with pmh of nasopharyngeal Ca in remission here with nausea vomiting and found to have severe symptomatic hyponatremia. Severe hyponatremia which is symptomatic with nausea and vomiting. Patient has euvolemic hyponatremia symptomatic with nausea and vomiting It is possible patient has a paraneoplatic syndrome given his Ca but it is unlikely given he is monitored at [facility] and has not had any relapse of his Ca and had recent CT which did not show Ca will get CXR to evaluate any suspicion of mets to the chest Could Be SIADH will consider neuroimaging in future Do not allow sodium to go above 123 for 24 hours q4h BMP during my research it was found there are a few documented cases of hyponatremia secondary to augmentin although this is rare it is possible given the fact he was taking double the dose and then developed these symptoms Teddy will consider endocrine consult in future if refractory nephrology consult appreciated NS @ 125ml/hr hyponatremia improving TFTs show high TSH and possible hypothyroidism will follow up free T3 Diarrhea:resolved per patient do not suspect infectious source such as C dif or colitis no need for Abx at this time monitor Nasopharyngeal Ca: patient has follow up and is compliant outpt follow up FEN: NS @ 125ml/hr Hyperkalemia hyponatremia-trend BMP q4h CLD PPx: HSQ no GI PPx needed no deconditioning issues
--- NOTE | 2016-10-12 12:35 | PN ---
Teaching Attending Note Name of Resident: Andrei Pemberton ATTENDING PHYSICIAN STATEMENT I saw and evaluated the patient. I reviewed the resident's note and discussed the case with the resident. I agree with the resident's findings and plan as documented. SUBJECTIVE: Pt seen and examined in the ICU. Feels significantly better. Sodium slowly coming up with IVF. No further vomiting or diarrhea. OBJECTIVE: Last Vital Signs Temp Pulse Resp BP Pulse Ox 98.2 F 66 18 112/85 100 10/12/16 10:00 10/12/16 10:00 10/12/16 10:00 10/12/16 10:00 10/12/16 09:00 Intake & Output 10/09/16 10/10/16 10/11/16 10/12/16 23:59 23:59 23:59 23:59 Intake Total 100 1250 Output Total 1500 Balance 100 -250 Weight 170 lb 0.01 oz 174 lb 12.8 oz Gen: NAD at rest Heart: RRR Lung: clear to auscultation Abd: soft, nontender Ext: no edema CBC, BMP 10/11/16 21:20 10/12/16 11:05 Active Medications Acetaminophen (Tylenol -) 650 mg PO Q4H PRN PRN Reason: FEVER OR PAIN Chlorhexidine Gluconate (Hibiclens For Decolonization -) 1 applic TP HS [facility] Last Admin: 10/11/16 21:41 Dose: 1 applic Heparin Sodium (Porcine) (Heparin -) 5,000 unit SQ TID [facility] Last Admin: 10/12/16 06:18 Dose: 5,000 unit Sodium Chloride (Normal Saline -) 1,000 mls @ 125 mls/hr IV ASDIR [facility] Mupirocin (Bactroban Ointment (For Decolonization) -) 1 applic NS BID [facility] Stop: 10/16/16 21:59 Last Admin: 10/12/16 09:57 Dose: 1 applic Ondansetron HCl (Zofran Injection) 4 mg IVPB Q4H PRN PRN Reason: NAUSEA ASSESSMENT AND PLAN: Severe Hyponatremia Hyperkalemia h/o Nasopharyngeal Ca Dehydration from Vomiting/Diarrhea - continue IVF per renal - monitor lytes closely - correct Na no more than 0.5mEq/hr - PO as tolerated - DVT prophylaxis - continue ICU monitoring
--- NOTE | 2016-10-12 13:16 | PN ---
Progress Note (short form) - Note Progress Note: Subjective: The patient was seen and examined at the bedside, he is eating his lunch. He denies any nausea, vomiting, diarrhea. Na 121 Current Medications Generic Name Dose Route Start Last Admin Trade Name Freq PRN Reason Stop Dose Admin Acetaminophen 650 mg 10/11/16 13:23 Tylenol - PO Q4H PRN FEVER OR PAIN Chlorhexidine Gluconate 1 applic 10/11/16 22:00 10/11/16 21:41 Hibiclens For Decolonization - TP 1 applic HS MAHAD Administration Heparin Sodium (Porcine) 5,000 unit 10/11/16 22:00 10/12/16 13:21 Heparin - SQ 5,000 unit TID MAHAD Administration Sodium Chloride 1,000 mls @ 125 mls/hr 10/12/16 11:56 10/12/16 13:21 Normal Saline - IV 125 mls/hr ASDIR MAHAD Administration Mupirocin 1 applic 10/11/16 22:00 10/12/16 09:57 Bactroban Ointment (For Decolonization) - NS 10/16/16 21:59 1 applic BID MAHAD Administration Ondansetron HCl 4 mg 10/11/16 13:23 Zofran Injection IVPB Q4H PRN NAUSEA Objective: Vital Signs Period Temp Pulse Resp BP Sys/Stein Pulse Ox Last 24 Hr 97.8 F-98.6 F 57-75 12-20 111-129/74-87 100-100 Physical Exam: General: NAD, A&Ox3 Lungs: CTA bilaterally Heart: RRR, S1S2 Abd: Soft, non-tender, non-distended. Normoactive bowel sounds Ext: Warm, well-perfused. 2+ DP/PT bilaterally Neuro: CN 2-12 intact CBCD WBC 4.2 K/mm3 (4.0-10.0) 10/11/16 21:20 RBC 3.87 M/mm3 (4.00-5.60) L 10/11/16 21:20 Hgb 9.6 GM/dL (11.7-16.9) L 10/11/16 21:20 Hct 28.7 % (35.4-49) L 10/11/16 21:20 MCV 74.1 fl (80-96) L 10/11/16 21:20 MCHC 33.6 g/dl (32.0-35.9) 10/11/16 21:20 RDW 14.9 % (11.9-15.9) 10/11/16 21:20 Plt Count 305 K/MM3 (134-434) 10/11/16 21:20 MPV 7.7 fl (7.5-11.1) 10/11/16 21:20 CMP Sodium 121 mmol/L (136-145) L* 10/12/16 11:05 Potassium 4.6 mmol/L (3.5-5.1) 10/12/16 11:05 Chloride 85 mmol/L (98-107) L 10/12/16 11:05 Carbon Dioxide 24 mmol/L (21-32) 10/12/16 11:05 Anion Gap 12 (8-16) 10/12/16 11:05 BUN 8 mg/dL (7-18) 10/12/16 11:05 Creatinine 1.2 mg/dL (0.7-1.3) 10/12/16 11:05 Creat Clearance w eGFR > 60 (>60) 10/12/16 05:05 Random Glucose 73 mg/dL (74-106) L 10/12/16 11:05 Calcium 8.6 mg/dL (8.5-10.1) 10/12/16 11:05 Total Bilirubin 0.5 mg/dL (0.2-1.0) 10/12/16 05:05 AST 22 U/L (15-37) 10/12/16 05:05 ALT 19 U/L (12-78) 10/12/16 05:05 Alkaline Phosphatase 102 U/L (45-117) 10/12/16 05:05 Total Protein 7.0 g/dl (6.4-8.2) 10/12/16 05:05 Albumin 3.5 g/dl (3.4-5.0) 10/12/16 05:05 CARDIAC ENZYMES Creatine Kinase 296 IU/L (39-308) D 10/12/16 05:05 Microbiology 10/11/16 22:30 Nasopharyngeal Swab Influenza Types A,B Antigen (ETTA) - Final 10/11/16 22:30 Nasopharyngeal Swab - Final Assessment: This is a 36 year old male with PMHx of nasopharyngeal carcinoma in 2011 (s/p chemo and radiation), who presented to the ED with fatigue, weakness, chills, nausea, vomiting and was found to have a sodium of 113. Plan: 1) Severe hyponatremia - Patient had reported nausea/vomiting which may have been caused by hyponatremia vs. causing hypovolemic hyponatremia - N/V has resolved - Na trending up, continue q4h BMP. Do not correct Na >0.5meq/hr - Continue IV fluids per renal - Urine sodium and osmo checked after patient already received several liters of fluids - Appreciate nephrology consult - Appreciate critical care consult 2) GI: Nausea, vomiting, diarrhea - Resolved 3) F/E/N: - Regular diet - Q4h BMP 4) Prophylaxis: - Heparin 5,000u sq tid 5) Dispo: - Requires continued ICU care CODE STATUS: FULL CODE Visit type - Emergency Visit Emergency Visit: Yes ED Registration Date: 10/11/16 Care time: The patient presented to the Emergency Department on the above date and was hospitalized for further evaluation of their emergent condition. - New Patient This patient is new to me today: Yes Date on this admission: 10/13/16 - Critical Care Critical Care patient: Yes Total Critical Care Time (in minutes): 35 Critical Care Statement: The care of this patient involved high complexity decision making to prevent further life threatening deterioration of the patient 's condition and/or to evalute & treat vital organ system(s) failure or risk of failure.
[2016-10-12 16:50] LABS: CALCIUM 8.3 mg/dL (8.5-10.1); CREATININE 1.1 mg/dL (0.7-1.3)
[2016-10-12] MEDS ORDERED: SODIUM CHLORIDE 3% 500 ML IV ONE (17:44)
[2016-10-12 19:36] LABS: CALCIUM 8.5 mg/dL (8.5-10.1); CREATININE 1.1 mg/dL (0.7-1.3)
[2016-10-12] MEDS: CHLORHEXIDINE GLUCONATE 4% CLEANSER FOR DECOLONIZATION TP SCH (22:03)
[2016-10-12 22:25] LABS: CALCIUM 8.5 mg/dL (8.5-10.1); CREATININE 1.1 mg/dL (0.7-1.3)
[2016-10-12] MEDS: SODIUM CHLORIDE 3% 500 ML IVPB ONE ×2 (22:30→23:18)
[2016-10-13 01:01] LABS: CALCIUM 9.1 mg/dL (8.5-10.1); CREATININE 1.1 mg/dL (0.7-1.3)
[2016-10-13] MEDS ORDERED: DEXTROSE 5%-WATER - 1,000 ML IV SCH (01:30)
[2016-10-13 03:33] LABS: CALCIUM 8.4 mg/dL (8.5-10.1); CREATININE 1.1 mg/dL (0.7-1.3)
[2016-10-13] MEDS: HEPARIN NA (PORCINE) 5,000 UNITS/ML 1ML VIAL SQ SCH ×3 (06:14→21:22)
[2016-10-13 06:16] LABS: MCHC 33.6 g/dl (32.0-35.9); MEAN CELL VOLUME 74.5 fl (80-96); MEAN PLT VOLUME 7.7 fl (7.5-11.1); PLATELET COUNT 350 K/MM3 (134-434); WHITE BLOOD COUNT 3.9 K/mm3 (4.0-10.0)
[2016-10-13 06:49] LABS: CALCIUM 8.5 mg/dL (8.5-10.1); MAGNESIUM 2.2 mg/dL (1.8-2.4); PHOSPHOROUS 3.1 mg/dL (2.5-4.9)
[2016-10-13 06:54] LABS: FERRITIN 217.9 ng/ml (16.4-293.9)
--- NOTE | 2016-10-13 09:44 | PN ---
Progress Note, Physician History of Present Illness: patient seen and examined at bedside in ICU Sodium increasing at an appropriate steady pace IVF stopped - Current Medication List Current Medications: Active Medications Acetaminophen (Tylenol -) 650 mg PO Q4H PRN PRN Reason: FEVER OR PAIN Chlorhexidine Gluconate (Hibiclens For Decolonization -) 1 applic TP HS [facility] Last Admin: 10/12/16 22:03 Dose: 1 applic Heparin Sodium (Porcine) (Heparin -) 5,000 unit SQ TID [facility] Last Admin: 10/13/16 06:14 Dose: 5,000 unit Sodium Chloride (Normal Saline -) 1,000 mls @ 125 mls/hr IV ASDIR [facility] Last Admin: 10/12/16 17:32 Dose: 125 mls/hr Mupirocin (Bactroban Ointment (For Decolonization) -) 1 applic NS BID [facility] Stop: 10/16/16 21:59 Last Admin: 10/12/16 22:03 Dose: 1 applic Ondansetron HCl (Zofran Injection) 4 mg IVPB Q4H PRN PRN Reason: NAUSEA - Objective Vital Signs: Vital Signs Temperature 98.4 F 10/13/16 05:00 Pulse Rate 67 10/13/16 08:01 Respiratory Rate 14 10/13/16 08:01 Blood Pressure 107/67 10/13/16 08:01 O2 Sat by Pulse Oximetry (%) 100 10/12/16 22:20 Constitutional: Yes: Well Nourished, No Distress, Calm Eyes: Yes: Conjunctiva Clear, EOM Intact HENT: Yes: WNL, Atraumatic, Normocephalic Neck: Yes: Supple, Trachea Midline Cardiovascular: Yes: Regular Rate and Rhythm Respiratory: Yes: CTA Bilaterally Gastrointestinal: Yes: Soft. No: Tenderness Musculoskeletal: Yes: WNL Extremities: Yes: WNL Edema: No Neurological: Yes: WNL, Alert, Oriented, Cran Nerves II-XII Intact, Other ( global muscle strength 5/5 and symmetric) Labs: CBC, BMP 10/13/16 05:35 10/13/16 05:35 Assessment/Plan 36M with pmh of nasopharyngeal Ca in remission here with nausea vomiting and found to have severe symptomatic hyponatremia. Severe hyponatremia which is symptomatic with nausea and vomiting. symptomatic with nausea and vomiting significantly improving It is possible patient has a paraneoplatic syndrome given his Ca but it is unlikely given he is monitored at [facility] and has not had any relapse of his Ca and had recent CT which did not show Ca will get CXR to evaluate any suspicion of mets to the chest Could Be SIADH will consider neuroimaging in future q4h BMP during my research it was found there are a few documented cases of hyponatremia secondary to augmentin although this is rare it is possible given the fact he was taking double the dose and then developed these symptoms Teddy will consider endocrine consult in future if refractory nephrology consult appreciated NS @ 150ml/hr hyponatremia improving TFTs show high TSH and possible hypothyroidism Diarrhea:resolved per patient do not suspect infectious source such as C dif or colitis no need for Abx at this time monitor Nasopharyngeal Ca: patient has follow up and is compliant outpt follow up FEN: NS @ 150ml/hr Hyperkalemia hyponatremia-trend BMP q4h CLD PPx: HSQ no GI PPx needed no deconditioning issues Transfer to Med surg
[2016-10-13 11:19] LABS: CALCIUM 8.5 mg/dL (8.5-10.1); CREATININE 1.2 mg/dL (0.7-1.3)
[2016-10-13] MEDS: MUPIROCIN 2% TOPICAL OINTMENT FOR DECOLONIZATION NS SCH ×2 (11:21→21:23)
--- NOTE | 2016-10-13 13:16 | PN ---
Teaching Attending Note Name of Resident: Andrei Pemberton ATTENDING PHYSICIAN STATEMENT I saw and evaluated the patient. I reviewed the resident's note and discussed the case with the resident. I agree with the resident's findings and plan as documented. SUBJECTIVE: Patient seen and examined in the ICU. Feels better today. Sodium level currently 125 today (124 yesterday) Denies CP or SOB. No diarrhea. Was able to tolerate PO intake this AM. OBJECTIVE: Laboratory Results - last 24 hr 10/12/16 10/12/16 10/12/16 05:05 11:05 15:30 WBC RBC Hgb Hct MCV MCHC RDW Plt Count MPV Sodium 119 L* Potassium 4.9 Chloride 87 L Carbon Dioxide 25 Anion Gap 7 L BUN 9 Creatinine 1.1 Random Glucose 87 Calcium 8.3 L Phosphorus Magnesium Ferritin Free T3 1.4 L Cortisol AM Sample 9.3 Ur Random Sodium Ur Random Potassium Ur Random Chloride 10/12/16 10/12/16 10/12/16 18:50 20:50 21:47 WBC RBC Hgb Hct MCV MCHC RDW Plt Count MPV Sodium 121 L* 122 L* Potassium 4.1 4.6 Chloride 89 L 89 L Carbon Dioxide 21 25 Anion Gap 11 8 BUN 11 D 10 Creatinine 1.1 1.1 Random Glucose 69 L D 81 Calcium 8.5 8.5 Phosphorus Magnesium Ferritin Free T3 Cortisol AM Sample Ur Random Sodium 74 Ur Random Potassium 14.2 Ur Random Chloride 78 10/13/16 10/13/16 10/13/16 00:20 02:45 05:35 WBC RBC Hgb Hct MCV MCHC RDW Plt Count MPV Sodium 128 L 126 L 124 L* Potassium 4.8 4.9 4.4 Chloride 90 L 91 L 91 L Carbon Dioxide 25 26 25 Anion Gap 13 9 8 BUN 11 11 10 Creatinine 1.1 1.1 1.0 Random Glucose 86 95 72 L D Calcium 9.1 8.4 L 8.5 Phosphorus 3.1 Magnesium 2.2 Ferritin 217.900 Free T3 Cortisol AM Sample Ur Random Sodium Ur Random Potassium Ur Random Chloride 10/13/16 10/13/16 10/13/16 05:35 05:35 10:15 WBC 3.9 L RBC 4.16 Hgb 10.4 L Hct 31.0 L MCV 74.5 L MCHC 33.6 RDW 15.0 Plt Count 350 MPV 7.7 Sodium Cancelled 125 L Potassium Cancelled 4.7 Chloride Cancelled 92 L Carbon Dioxide Cancelled 25 Anion Gap Cancelled 8 BUN Cancelled 11 Creatinine Cancelled 1.2 Random Glucose Cancelled 92 D Calcium Cancelled 8.5 Phosphorus Magnesium Ferritin Free T3 Cortisol AM Sample Ur Random Sodium Ur Random Potassium Ur Random Chloride Gen: NAD at rest Heart: RRR Lung: clear to auscultation Abd: soft, nontender Ext: no edema Laboratory Results - last 24 hr 10/12/16 10/12/16 10/12/16 05:05 11:05 15:30 WBC RBC Hgb Hct MCV MCHC RDW Plt Count MPV Sodium 119 L* Potassium 4.9 Chloride 87 L Carbon Dioxide 25 Anion Gap 7 L BUN 9 Creatinine 1.1 Random Glucose 87 Calcium 8.3 L Phosphorus Magnesium Ferritin Free T3 1.4 L Cortisol AM Sample 9.3 Ur Random Sodium Ur Random Potassium Ur Random Chloride 10/12/16 10/12/16 10/12/16 18:50 20:50 21:47 WBC RBC Hgb Hct MCV MCHC RDW Plt Count MPV Sodium 121 L* 122 L* Potassium 4.1 4.6 Chloride 89 L 89 L Carbon Dioxide 21 25 Anion Gap 11 8 BUN 11 D 10 Creatinine 1.1 1.1 Random Glucose 69 L D 81 Calcium 8.5 8.5 Phosphorus Magnesium Ferritin Free T3 Cortisol AM Sample Ur Random Sodium 74 Ur Random Potassium 14.2 Ur Random Chloride 78 10/13/16 10/13/16 10/13/16 00:20 02:45 05:35 WBC RBC Hgb Hct MCV MCHC RDW Plt Count MPV Sodium 128 L 126 L 124 L* Potassium 4.8 4.9 4.4 Chloride 90 L 91 L 91 L Carbon Dioxide 25 26 25 Anion Gap 13 9 8 BUN 11 11 10 Creatinine 1.1 1.1 1.0 Random Glucose 86 95 72 L D Calcium 9.1 8.4 L 8.5 Phosphorus 3.1 Magnesium 2.2 Ferritin 217.900 Free T3 Cortisol AM Sample Ur Random Sodium Ur Random Potassium Ur Random Chloride 10/13/16 10/13/16 10/13/16 05:35 05:35 10:15 WBC 3.9 L RBC 4.16 Hgb 10.4 L Hct 31.0 L MCV 74.5 L MCHC 33.6 RDW 15.0 Plt Count 350 MPV 7.7 Sodium Cancelled 125 L Potassium Cancelled 4.7 Chloride Cancelled 92 L Carbon Dioxide Cancelled 25 Anion Gap Cancelled 8 BUN Cancelled 11 Creatinine Cancelled 1.2 Random Glucose Cancelled 92 D Calcium Cancelled 8.5 Phosphorus Magnesium Ferritin Free T3 Cortisol AM Sample Ur Random Sodium Ur Random Potassium Ur Random Chloride ASSESSMENT AND PLAN: Severe Hyponatremia Hyperkalemia h/o Nasopharyngeal Ca Dehydration from Vomiting/Diarrhea - continue IVF per renal - monitor lytes closely - correct Na no more than 0.5mEq/hr - PO as tolerated - DVT prophylaxis - Floor Dr Higuera CCTime 35"
--- NOTE | 2016-10-13 13:17 | PN ---
Physical Exam: SUBJECTIVE: Patient seen and examined, states, "feeling well, and has no more nausea, vomiting, diarrhea." Pt has good appetite and no abdominal discomfort. Na decreased overnight, pt placed on 3% normal saline with an increase in Na 128. Pt then placed on D5, Na decreasing, continue to trend. Pt remains asymptomatic. Current Medications Generic Name Dose Route Start Last Admin Trade Name Freq PRN Reason Stop Dose Admin Acetaminophen 650 mg 10/13/16 15:59 Tylenol - PO Q4H PRN FEVER OR PAIN Chlorhexidine Gluconate 1 applic 10/13/16 22:00 Hibiclens For Decolonization - TP HS [facility] Heparin Sodium (Porcine) 5,000 unit 10/13/16 22:00 Heparin - SQ TID [facility] Sodium Chloride 1,000 mls @ 150 mls/hr 10/13/16 15:59 10/13/16 17:23 Normal Saline - IV 150 mls/hr ASDIR [facility] Administration Mupirocin 1 applic 10/13/16 22:00 Bactroban Ointment (For Decolonization) - NS 10/16/16 21:59 BID MAHAD Ondansetron HCl 4 mg 10/13/16 15:59 Zofran Injection IVPB Q4H PRN NAUSEA OBJECTIVE: Na 125 as of 1015AM 10/13/16, increased from 124 as of 0535AM on 10/13/16. Vital Signs Period Temp Pulse Resp BP Sys/Stein Pulse Ox Last 24 Hr 97.4 F-98.6 F 55-76 14-18 97-126/65-87 100-100 GENERAL: The patient is awake, alert, and fully oriented, in no acute distress. HEAD: Normal with no signs of trauma, NC/AT EYES: PERRL, extraocular movements intact, sclera anicteric, conjunctiva clear. No ptosis. ENT: Ears normal, nares patent, moist mucous membranes. Frontal and nasal sinuses non-tender. NECK: Trachea midline, full range of motion, supple. LUNGS: Breath sounds equal, clear to auscultation bilaterally, no wheezes, no crackles, no accessory muscle use, symmetrical respiratory excursion. HEART: Regular rate and rhythm, S1, S2 without murmur, rub or gallop. ABDOMEN: Soft, nontender, nondistended, normoactive bowel sounds, no guarding, no rebound, no hepatosplenomegaly, no masses. EXTREMITIES: 2+ pulses, warm, well-perfused, no edema. NEUROLOGICAL: Cranial nerves II through XII grossly intact. Normal speech, gait not observed. PSYCH: Normal mood, normal affect. SKIN: Warm, dry, normal turgor, no rashes or lesions noted. CBCD WBC 3.9 K/mm3 (4.0-10.0) L 10/13/16 05:35 RBC 4.16 M/mm3 (4.00-5.60) 10/13/16 05:35 Hgb 10.4 GM/dL (11.7-16.9) L 10/13/16 05:35 Hct 31.0 % (35.4-49) L 10/13/16 05:35 MCV 74.5 fl (80-96) L 10/13/16 05:35 MCHC 33.6 g/dl (32.0-35.9) 10/13/16 05:35 RDW 15.0 % (11.9-15.9) 10/13/16 05:35 Plt Count 350 K/MM3 (134-434) 10/13/16 05:35 MPV 7.7 fl (7.5-11.1) 10/13/16 05:35 CMP Sodium 125 mmol/L (136-145) L 10/13/16 10:15 Potassium 4.7 mmol/L (3.5-5.1) 10/13/16 10:15 Chloride 92 mmol/L (98-107) L 10/13/16 10:15 Carbon Dioxide 25 mmol/L (21-32) 10/13/16 10:15 Anion Gap 8 (8-16) 10/13/16 10:15 BUN 11 mg/dL (7-18) 10/13/16 10:15 Creatinine 1.2 mg/dL (0.7-1.3) 10/13/16 10:15 Creat Clearance w eGFR > 60 (>60) 10/12/16 05:05 Random Glucose 92 mg/dL (74-106) D 10/13/16 10:15 Calcium 8.5 mg/dL (8.5-10.1) 10/13/16 10:15 Total Bilirubin 0.5 mg/dL (0.2-1.0) 10/12/16 05:05 AST 22 U/L (15-37) 10/12/16 05:05 ALT 19 U/L (12-78) 10/12/16 05:05 Alkaline Phosphatase 102 U/L (45-117) 10/12/16 05:05 Total Protein 7.0 g/dl (6.4-8.2) 10/12/16 05:05 Albumin 3.5 g/dl (3.4-5.0) 10/12/16 05:05 CARDIAC ENZYMES Creatine Kinase 296 IU/L (39-308) D 10/12/16 05:05 Laboratory Tests 10/12/16 10/13/16 10/13/16 21:47 00:20 02:45 Sodium 122 L* 128 L 126 L 10/13/16 10/13/16 05:35 10:15 Sodium 124 L* 125 L Microbiology 10/11/16 22:30 Nasopharyngeal Swab Influenza Types A,B Antigen (ETTA) - Final 10/11/16 22:30 Nasopharyngeal Swab - Final ASSESSMENT/PLAN: 36 year old male with a past medical history of nasopharyngeal cancer seen at [facility] (since age 10 in 2011, on chemo/radiation and now in remission). Patient presented to the ED with nausea, vomiting, loose watery stools and abdominal comfort, and unable to tolerate diet after taking double of the prescribed dose of Augmentin for a sinus infection for 6 days and found to have profound hyponatremia. 1. F/E/N - Hyponatremia - Nausea, vomiting, diarrhea - due to hyponatremia vs causing hypovolemia hyponatremia - N/V resolved - Urine Na/serum osmolality taken after IVF - Continue to trend Na - Na 125, continue NS IVF as per renal, do NOT correct > 0.5mEq/h/24hours - continue regular diet 2. GI - N/V/D - resolved - continue zofran PRN ENT - Nasopharyngeal ca - follow up with [facility] Prophylaxis -DVT px - continue subcutaneous Heparin 5000 units TID Disposition - continue inpatient care Code status - FULL Code Visit type - Emergency Visit Emergency Visit: Yes ED Registration Date: 10/11/16 Care time: The patient presented to the Emergency Department on the above date and was hospitalized for further evaluation of their emergent condition. - New Patient This patient is new to me today: No - Critical Care Critical Care patient: No
[2016-10-13] MEDS ORDERED: SODIUM CHLORIDE 1,000 ML IV SCH (13:22)
[2016-10-13] MEDS: SODIUM CHLORIDE 1,000 ML IV SCH ×3 (13:27→23:15)
[2016-10-13 15:44] LABS: CALCIUM 8.5 mg/dL (8.5-10.1); CREATININE 1.2 mg/dL (0.7-1.3)
[2016-10-13] MEDS ORDERED: ONDANSETRON 4 MG/2 ML VIAL IVPB PRN (15:59)
[2016-10-13] MEDS ORDERED: ACETAMINOPHEN 325 MG TABLET (FP) PO PRN (15:59)
--- NOTE | 2016-10-13 17:29 | PN ---
Progress Note, Physician History of Present Illness: Pt seen and examined at bedside. He is awake and alert. He feels better today. He is tolerating diet. - Current Medication List Current Medications: Active Medications Acetaminophen (Tylenol -) 650 mg PO Q4H PRN PRN Reason: FEVER OR PAIN Chlorhexidine Gluconate (Hibiclens For Decolonization -) 1 applic TP HS [facility] Heparin Sodium (Porcine) (Heparin -) 5,000 unit SQ TID [facility] Sodium Chloride (Normal Saline -) 1,000 mls @ 150 mls/hr IV ASDIR [facility] Last Admin: 10/13/16 17:23 Dose: 150 mls/hr Mupirocin (Bactroban Ointment (For Decolonization) -) 1 applic NS BID [facility] Stop: 10/16/16 21:59 Ondansetron HCl (Zofran Injection) 4 mg IVPB Q4H PRN PRN Reason: NAUSEA - Objective Vital Signs: Vital Signs Temperature 97.4 F L 10/13/16 10:00 Pulse Rate 78 10/13/16 16:00 Respiratory Rate 18 10/13/16 16:00 Blood Pressure 114/70 10/13/16 16:00 O2 Sat by Pulse Oximetry (%) 100 10/13/16 09:00 Constitutional: Yes: Calm Eyes: Yes: Conjunctiva Clear HENT: Yes: Atraumatic Neck: Yes: Supple Cardiovascular: Yes: S1, S2 Respiratory: Yes: CTA Bilaterally Gastrointestinal: Yes: Soft Genitourinary: Yes: WNL Musculoskeletal: Yes: WNL Edema: No Neurological: Yes: Oriented Psychiatric: Yes: Oriented Labs: CBC, BMP 10/13/16 05:35 10/13/16 14:40 Problem List - Problems (1) Abdominal pain Code(s): R10.9 - UNSPECIFIED ABDOMINAL PAIN Qualifiers: Qualified Code(s): R10.13 - Epigastric pain (2) Chills Code(s): R68.83 - CHILLS (WITHOUT FEVER) (3) Hyponatremia Code(s): E87.1 - HYPO-OSMOLALITY AND HYPONATREMIA (4) Nausea, vomiting and diarrhea Code(s): R11.2 - NAUSEA WITH VOMITING, UNSPECIFIED R19.7 - DIARRHEA, UNSPECIFIED (5) History of nasopharyngeal cancer Code(s): Z85.819 - PRSNL HX OF MALIG NEOPLM OF UNSP SITE LIP,ORAL CAV,& PHARYNX (6) Anemia Code(s): D64.9 - ANEMIA, UNSPECIFIED (7) Hyperkalemia Code(s): E87.5 - HYPERKALEMIA Assessment/Plan Current Medications Generic Name Dose Route Start Last Admin Trade Name Freq PRN Reason Stop Dose Admin Acetaminophen 650 mg 10/13/16 15:59 Tylenol - PO Q4H PRN FEVER OR PAIN Chlorhexidine Gluconate 1 applic 10/13/16 22:00 Hibiclens For Decolonization - TP HS [facility] Heparin Sodium (Porcine) 5,000 unit 10/13/16 22:00 Heparin - SQ TID [facility] Sodium Chloride 1,000 mls @ 150 mls/hr 10/13/16 15:59 10/13/16 17:23 Normal Saline - IV 150 mls/hr ASDIR [facility]AD Administration Mupirocin 1 applic 10/13/16 22:00 Bactroban Ointment (For Decolonization) - NS 10/16/16 21:59 BID MAHAD Ondansetron HCl 4 mg 10/13/16 15:59 Zofran Injection IVPB Q4H PRN NAUSEA Impression 1. hyponatremia 2. hyperkalemia 3. anemia 4. history of nasopharyngeal cancer 5. diarrhea 6. vomiting 7. leukopenia Plan - cont with saline - pt did get hypertonic saline and sodium is improving, cont with NS for the meantime - all night labs reviewed with nurse overnight - monitor sodium - hyponatremia secondary to severe diarrhea and vomiting - pt has a microcytic anemia, will need workup, can send iron levels for now - avoid a change of sodium of greater than 10 meq in 24 hours - dvt prophylaxis - will follow closely Thank you for this consultation Dr Link
[2016-10-13] MEDS: CHLORHEXIDINE GLUCONATE 4% CLEANSER FOR DECOLONIZATION TP SCH (21:23)
[2016-10-13 22:45] LABS: CALCIUM 8.3 mg/dL (8.5-10.1); CREATININE 1.1 mg/dL (0.7-1.3)
[2016-10-14] MEDS ORDERED: INSULIN (NOVOLOG) ASPART 100 UNITS/ML 10ML VIAL SQ ONE (00:34)
[2016-10-14] MEDS ORDERED: ALBUTEROL SO4 0.083% IH SOL 2.5 MG/3 ML VIAL.NEB. NEB ONE (00:34)
[2016-10-14] MEDS ORDERED: DEXTROSE 50%-WATER 50 ML VIAL IVPUSH ONE (00:34)
--- NOTE | 2016-10-14 00:35 | HOSP ---
Physical Examination Vital Signs: Vital Signs Temperature 98.5 F 10/13/16 20:00 Pulse Rate 67 10/13/16 20:00 Respiratory Rate 16 10/13/16 23:04 Blood Pressure 105/69 10/13/16 20:00 O2 Sat by Pulse Oximetry (%) 100 10/13/16 23:04 Labs: CBC, BMP 10/13/16 05:35 10/13/16 21:30 Hospitalist Encounter Assessment: I was notified by the RN that patient's BMP returned and the potassium was 5.4 and sodium of 126. Patient's sodium has not changed from previous level taken yesterday morning. Patient offers no complaints and reports no chest pain, palpitations, short of breath, dizziness, headaches, numbness or tingling. On physical examination heart was regular rate and rhythm, lungs were clear to auscultation. PLAN: -3 amps of albuterol back to back -5 units of insulin novolog -D50W 50ml IV PUSH -Continue Normal Saline a@150 mls/hr -Will repeat glucose level after treatment -Repeat BMP in the morning Visit type - Emergency Visit Emergency Visit: No - New Patient This patient is new to me today: Yes Date on this admission: 10/14/16 - Critical Care Critical Care patient: No
[2016-10-14] MEDS ORDERED: DEXTROSE 50%-WATER 50 ML DISP.SYRIN ONE (00:46)
[2016-10-14] MEDS: HEPARIN NA (PORCINE) 5,000 UNITS/ML 1ML VIAL SQ SCH ×3 (06:11→21:27)
[2016-10-14 09:07] LABS: MCH 25.2 pg (25.7-33.7); MCHC 33.4 g/dl (32.0-35.9); MEAN CELL VOLUME 75.3 fl (80-96); MEAN PLT VOLUME 7.6 fl (7.5-11.1); PLATELET COUNT 272 K/MM3 (134-434); RDW 15.3 % (11.9-15.9); WHITE BLOOD COUNT 5.1 K/mm3 (4.0-10.0)
[2016-10-14 09:51] LABS: ALBUMIN 3.2 g/dl (3.4-5.0); ALK PHOS 101 U/L (45-117); ANION GAP 9 (8-16); BILIRUBIN,TOTAL 0.2 mg/dL (0.2-1.0); CALCIUM 8.4 mg/dL (8.5-10.1); CO2 23 mmol/L (21-32); CREATININE 1.1 mg/dL (0.7-1.3); GLUCOSE,RANDOM 111 mg/dL (74-106); SGOT/AST 19 U/L (15-37); SGPT/ALT 18 U/L (12-78); TOT PROT 6.7 g/dl (6.4-8.2)
[2016-10-14] MEDS: MUPIROCIN 2% TOPICAL OINTMENT FOR DECOLONIZATION NS SCH ×2 (10:01→21:30)
--- NOTE | 2016-10-14 10:31 | PN ---
Progress Note (short form) - Note Progress Note: Subjective: The patient was seen and examined at the bedside, he has no complaints at this time K 5.4 overnight, albuterol, insulin, D50 given, this AM K is 4.3 Na 131 Current Medications Generic Name Dose Route Start Last Admin Trade Name Freq PRN Reason Stop Dose Admin Acetaminophen 650 mg 10/13/16 15:59 Tylenol - PO Q4H PRN FEVER OR PAIN Chlorhexidine Gluconate 1 applic 10/13/16 22:00 10/13/16 21:23 Hibiclens For Decolonization - TP Not Given HS MA[facility]AD Heparin Sodium (Porcine) 5,000 unit 10/13/16 22:00 10/14/16 06:11 Heparin - SQ 5,000 unit TID MAHAD Administration Sodium Chloride 1,000 mls @ 150 mls/hr 10/13/16 15:59 10/13/16 23:15 Normal Saline - IV 150 mls/hr ASDIR MAHAD Administration Mupirocin 1 applic 10/13/16 22:00 10/14/16 10:01 Bactroban Ointment (For Decolonization) - NS 10/16/16 21:59 Not Given BID MAHAD Ondansetron HCl 4 mg 10/13/16 15:59 Zofran Injection IVPB Q4H PRN NAUSEA Objective: Vital Signs Period Temp Pulse Resp BP Sys/Stein Pulse Ox Last 24 Hr 97.8 F-98.5 F 67-88 16-20 90-129/49-81 100-100 Physical Exam: General: NAD, A&Ox3 Lungs: CTA bilaterally Heart: RRR, S1S2 Abd: Soft, non-tender, non-distended. Normoactive bowel sounds Ext: Warm, well-perfused. 2+ DP/PT bilaterally Neuro: CN 2-12 intact CBCD WBC 5.1 K/mm3 (4.0-10.0) D 10/14/16 07:45 RBC 3.70 M/mm3 (4.00-5.60) L 10/14/16 07:45 Hgb 9.3 GM/dL (11.7-16.9) L D 10/14/16 07:45 Hct 27.8 % (35.4-49) L 10/14/16 07:45 MCV 75.3 fl (80-96) L 10/14/16 07:45 MCHC 33.4 g/dl (32.0-35.9) 10/14/16 07:45 RDW 15.3 % (11.9-15.9) 10/14/16 07:45 Plt Count 272 K/MM3 (134-434) D 10/14/16 07:45 MPV 7.6 fl (7.5-11.1) 10/14/16 07:45 CMP Sodium 131 mmol/L (136-145) L 10/14/16 07:45 Potassium 4.3 mmol/L (3.5-5.1) D 10/14/16 07:45 Chloride 99 mmol/L (98-107) 10/14/16 07:45 Carbon Dioxide 23 mmol/L (21-32) 10/14/16 07:45 Anion Gap 9 (8-16) 10/14/16 07:45 BUN 9 mg/dL (7-18) 10/14/16 07:45 Creatinine 1.1 mg/dL (0.7-1.3) 10/14/16 07:45 Creat Clearance w eGFR > 60 (>60) 10/14/16 07:45 Random Glucose 111 mg/dL (74-106) H D 10/14/16 07:45 Calcium 8.4 mg/dL (8.5-10.1) L 10/14/16 07:45 Total Bilirubin 0.2 mg/dL (0.2-1.0) D 10/14/16 07:45 AST 19 U/L (15-37) 10/14/16 07:45 ALT 18 U/L (12-78) 10/14/16 07:45 Alkaline Phosphatase 101 U/L (45-117) 10/14/16 07:45 Total Protein 6.7 g/dl (6.4-8.2) 10/14/16 07:45 Albumin 3.2 g/dl (3.4-5.0) L 10/14/16 07:45 CARDIAC ENZYMES Creatine Kinase 296 IU/L (39-308) D 10/12/16 05:05 Microbiology 10/11/16 22:30 Nasopharyngeal Swab Influenza Types A,B Antigen (ETTA) - Final 10/11/16 22:30 Nasopharyngeal Swab - Final Assessment: This is a 36 year old male with 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 Plan: 1) Severe hyponatremia - N/V/D resolved upon admission - Na continues to trend up - Continue IV fluids per renal - Urine sodium and osmo checked after patient already received several liters of fluids - Appreciate nephrology consult - Appreciate critical care consult 2) GI: Nausea, vomiting, diarrhea - Resolved 3) F/E/N: - Regular diet - Monitor electrolytes - Hyperkalemia: resolved 4) Prophylaxis: - Heparin 5,000u sq tid 5) Dispo: - Requires continued inpatient care CODE STATUS: FULL CODE Visit type - Emergency Visit Emergency Visit: Yes ED Registration Date: 10/11/16 Care time: The patient presented to the Emergency Department on the above date and was hospitalized for further evaluation of their emergent condition. - New Patient This patient is new to me today: No - Critical Care Critical Care patient: No
--- NOTE | 2016-10-14 11:59 | PN ---
Progress Note (short form) - Note Progress Note: RENAL Pt is awake and alert comfortable Last Vital Signs Temp Pulse Resp BP Pulse Ox 97.8 F 80 18 118/90 100 10/14/16 09:00 10/14/16 09:00 10/14/16 09:00 10/14/16 09:00 10/14/16 09:00 lungs clear cvs s1s2 rr abd soft ext no edema neuro a+ox3 CBC, BMP 10/14/16 07:45 10/14/16 07:45 Impression 1. hyponatremia 2. hyperkalemia 3. anemia 4. history of nasopharyngeal cancer. Unknown chemo and RT given 5. diarrhea 6. vomiting 7. leukopenia resolved Plan - cont with saline - hyponatremia secondary to severe diarrhea and vomiting - pt has a microcytic anemia, will need workup, can send iron levels for now - avoid a change of sodium of greater than 10 meq in 24 hours - dvt prophylaxis - will follow closely MV
[2016-10-14] MEDS: SODIUM CHLORIDE 1,000 ML IV SCH (15:23)
--- NOTE | 2016-10-14 21:24 | HOSP ---
Subjective - Review of Symptoms Events since last encounter: Hospitalist Encounter Notified by the RN that the patient reports a left clogged ear. Arrived to bedside patient is alert and oriented, c/o dizziness on ambulation to bathroom. Patient examined at bedside see PE, no portable otoscope available on the floor or in the ER to use. Patient became tearful, reports feeling anxious- I reinforced deep breathing and relaxation techniques to the patient. Order placed for Sudafed HEENT: Yes: Ear Pain (left ear popping sensation with fullness) Neurological: Yes: Other (Dizziness) Other Systems: Psychiatric- Anxious Physical Examination Vital Signs: Vital Signs Temperature 97.8 F 10/14/16 18:43 Pulse Rate 76 10/14/16 18:43 Respiratory Rate 20 10/14/16 18:43 Blood Pressure 145/90 10/14/16 18:43 O2 Sat by Pulse Oximetry (%) 100 10/14/16 09:00 Constitutional: Yes: Anxious, Thin Eyes: Yes: WNL, Conjunctiva Clear, PERRL HENT: Yes: WNL, Atraumatic, Normocephalic, Other (No preauricular tenderness) Neck: Yes: WNL, Supple, Trachea Midline Cardiovascular: Yes: WNL, Regular Rate and Rhythm, S1, S2 Respiratory: Yes: WNL, Regular, CTA Bilaterally Gastrointestinal: Yes: Normal Bowel Sounds, Soft Neurological: Yes: WNL, Alert, Oriented, Cran Nerves II-XII Intact Psychiatric: Yes: WNL, Alert, Oriented Labs: CBC, BMP 10/14/16 07:45 10/14/16 07:45 Current Medications Generic Name Dose Route Start Last Admin Trade Name Zachery PRN Reason Stop Dose Admin Acetaminophen 650 mg 10/13/16 15:59 Tylenol - PO Q4H PRN FEVER OR PAIN Chlorhexidine Gluconate 1 applic 10/13/16 22:00 10/14/16 21:29 Hibiclens For Decolonization - TP Not Given HS MAHAD Heparin Sodium (Porcine) 5,000 unit 10/13/16 22:00 10/15/16 06:21 Heparin - SQ 5,000 unit TID MAHAD Administration Sodium Chloride 1,000 mls @ 150 mls/hr 10/13/16 15:59 10/15/16 01:21 Normal Saline - IV 150 mls/hr ASDIR MA[facility]AD Administration Mupirocin 1 applic 10/13/16 22:00 10/14/16 21:30 Bactroban Ointment (For Decolonization) - NS 10/16/16 21:59 Not Given BID MA[facility]AD Ondansetron HCl 4 mg 10/13/16 15:59 Zofran Injection IVPB Q4H PRN NAUSEA Pseudoephedrine HCl 60 mg 10/14/16 23:00 10/15/16 05:37 Sudafed - PO 60 mg Q6H PRN Administration CONGESTION Hospitalist Encounter Outcome: [id number]- Notified via phone by RN that the patient had refused the Sudafed, and he now reports not feeling right and he wants to go back to ICU. Arrived to bedside patient is alert and oriented, patient reports continued left ear fullness and feelings of disequilibrium when he closes his eyes. Patient denies blurred vision, room spinning around. Patient agreed to take the Sudafed, which was given prior to my arrival. Will inform Day Team of last night and this morning's events.
[2016-10-14] MEDS: CHLORHEXIDINE GLUCONATE 4% CLEANSER FOR DECOLONIZATION TP SCH (21:29)
[2016-10-15] MEDS: SODIUM CHLORIDE 1,000 ML IV SCH (01:21)
[2016-10-15] MEDS: PSEUDOEPHEDRINE HCL 60 MG TABLET PO PRN ×2 (05:37→21:50)
[2016-10-15] MEDS: HEPARIN NA (PORCINE) 5,000 UNITS/ML 1ML VIAL SQ SCH ×3 (06:21→21:49)
[2016-10-15] MEDS: MUPIROCIN 2% TOPICAL OINTMENT FOR DECOLONIZATION NS SCH (09:28)
[2016-10-15 09:42] LABS: CALCIUM 8.7 mg/dL (8.5-10.1); CREATININE 1.1 mg/dL (0.7-1.3)
--- NOTE | 2016-10-15 11:13 | PN ---
Progress Note (short form) - Note Progress Note: RENAL Pt is awake and alert comfortable had some left ear fullness Last Vital Signs Temp Pulse Resp BP Pulse Ox 98.0 F 70 20 137/78 100 10/15/16 09:00 10/15/16 09:00 10/15/16 09:00 10/15/16 09:00 10/14/16 21:00 lungs clear cvs s1s2 rr abd soft ext no edema neuro a+ox3 Current Medications Generic Name Dose Route Start Last Admin Trade Name Freq PRN Reason Stop Dose Admin Acetaminophen 650 mg 10/13/16 15:59 Tylenol - PO Q4H PRN FEVER OR PAIN Chlorhexidine Gluconate 1 applic 10/13/16 22:00 10/14/16 21:29 Hibiclens For Decolonization - TP Not Given HS MAHAD Heparin Sodium (Porcine) 5,000 unit 10/13/16 22:00 10/15/16 06:21 Heparin - SQ 5,000 unit TID MAHAD Administration Sodium Chloride 1,000 mls @ 150 mls/hr 10/13/16 15:59 10/15/16 01:21 Normal Saline - IV 150 mls/hr ASDIR MAHAD Administration Mupirocin 1 applic 10/13/16 22:00 10/15/16 09:28 Bactroban Ointment (For Decolonization) - NS 10/16/16 21:59 Not Given BID MAHAD Ondansetron HCl 4 mg 10/13/16 15:59 Zofran Injection IVPB Q4H PRN NAUSEA Pseudoephedrine HCl 60 mg 10/14/16 23:00 10/15/16 05:37 Sudafed - PO 60 mg Q6H PRN Administration CONGESTION CBC, BMP 10/14/16 07:45 10/15/16 07:35 Impression 1. hyponatremia again worsened. he has a normal cortisol which I would expect to bie high and a high tsh. ALso has low urine specific gravity 2. hyperkalemia resolved- secondary to dehydration 3. anemia 4. history of nasopharyngeal cancer. Unknown chemo and RT given 5. diarrhea 6. vomiting 7. leukopenia resolved Plan fluid restrict repeat labs suspect patient is drinking too much water now MV
--- NOTE | 2016-10-15 13:23 | PN ---
[id number] bedside, he complained of fullness in his left ear and some anxiety overnight Otoscope revealed cerumen impaction b/l, unable to visualize tympanic membrane. no preauricular tenderness Na 126: fluid restriction and recheck bmp this PM Current Medications Generic Name Dose Route Start Last Admin Trade Name Freq PRN Reason Stop Dose Admin Acetaminophen 650 mg 10/13/16 15:59 Tylenol - PO Q4H PRN FEVER OR PAIN Chlorhexidine Gluconate 1 applic 10/13/16 22:00 10/13/16 21:23 Hibiclens For Decolonization - TP Not Given HS MAHAD Heparin Sodium (Porcine) 5,000 unit 10/13/16 22:00 10/14/16 06:11 Heparin - SQ 5,000 unit TID MAHAD Administration Sodium Chloride 1,000 mls @ 150 mls/hr 10/13/16 15:59 10/13/16 23:15 Normal Saline - IV 150 mls/hr ASDIR MAHAD Administration Mupirocin 1 applic 10/13/16 22:00 10/14/16 10:01 Bactroban Ointment (For Decolonization) - NS 10/16/16 21:59 Not Given BID MAHAD Ondansetron HCl 4 mg 10/13/16 15:59 Zofran Injection IVPB Q4H PRN NAUSEA Objective: Vital Signs Period Temp Pulse Resp BP Sys/Stein Pulse Ox Last 24 Hr 97.8 F-98.4 F 69-85 20-20 118-152/69-90 100-100 Physical Exam: General: NAD, A&Ox3 Lungs: CTA bilaterally Heart: RRR, S1S2 Abd: Soft, non-tender, non-distended. Normoactive bowel sounds Ext: Warm, well-perfused. 2+ DP/PT bilaterally Neuro: CN 2-12 intact CBCD WBC 5.1 K/mm3 (4.0-10.0) D 10/14/16 07:45 RBC 3.70 M/mm3 (4.00-5.60) L 10/14/16 07:45 Hgb 9.3 GM/dL (11.7-16.9) L D 10/14/16 07:45 Hct 27.8 % (35.4-49) L 10/14/16 07:45 MCV 75.3 fl (80-96) L 10/14/16 07:45 MCHC 33.4 g/dl (32.0-35.9) 10/14/16 07:45 RDW 15.3 % (11.9-15.9) 10/14/16 07:45 Plt Count 272 K/MM3 (134-434) D 10/14/16 07:45 MPV 7.6 fl (7.5-11.1) 10/14/16 07:45 CMP Sodium 126 mmol/L (136-145) L 10/15/16 07:35 Potassium 4.7 mmol/L (3.5-5.1) 10/15/16 07:35 Chloride 93 mmol/L (98-107) L 10/15/16 07:35 Carbon Dioxide 25 mmol/L (21-32) 10/15/16 07:35 Anion Gap 8 (8-16) 10/15/16 07:35 BUN 8 mg/dL (7-18) 10/15/16 07:35 Creatinine 1.1 mg/dL (0.7-1.3) 10/15/16 07:35 Creat Clearance w eGFR > 60 (>60) 10/14/16 07:45 Random Glucose 82 mg/dL (74-106) D 10/15/16 07:35 Calcium 8.7 mg/dL (8.5-10.1) 10/15/16 07:35 Total Bilirubin 0.2 mg/dL (0.2-1.0) D 10/14/16 07:45 AST 19 U/L (15-37) 10/14/16 07:45 ALT 18 U/L (12-78) 10/14/16 07:45 Alkaline Phosphatase 101 U/L (45-117) 10/14/16 07:45 Total Protein 6.7 g/dl (6.4-8.2) 10/14/16 07:45 Albumin 3.2 g/dl (3.4-5.0) L 10/14/16 07:45 CARDIAC ENZYMES Creatine Kinase 296 IU/L (39-308) D 10/12/16 05:05 Microbiology 10/11/16 22:30 Nasopharyngeal Swab Influenza Types A,B Antigen (ETTA) - Final 10/11/16 22:30 Nasopharyngeal Swab - Final Assessment: This is a 36 year old male with 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 Plan: 1) Severe hyponatremia - Na trending down - Discussed with nephrology: fluid restrict to 1L per day - Continue IV fluids per renal - Urine sodium and osmo checked after patient already received several liters of fluids - Appreciate nephrology consult - Appreciate critical care consult 2) GI: Nausea, vomiting, diarrhea - Resolved 3) F/E/N: - Regular diet - Monitor electrolytes - Hyperkalemia: resolved 4) Prophylaxis: - Heparin 5,000u sq tid 5) Dispo: - Requires continued inpatient care CODE STATUS: FULL CODE Visit type - Emergency Visit Emergency Visit: Yes ED Registration Date: 10/11/16 Care time: The patient presented to the Emergency Department on the above date and was hospitalized for further evaluation of their emergent condition. - New Patient This patient is new to me today: No - Critical Care Critical Care patient: No - Discharge Referral [facility]erred to [facility] Med P.C.: No
[2016-10-15 16:44] LABS: CALCIUM 8.4 mg/dL (8.5-10.1); CREATININE 1.1 mg/dL (0.7-1.3)
[2016-10-15 22:11] LABS: CALCIUM 8.8 mg/dL (8.5-10.1); CREATININE 1.1 mg/dL (0.7-1.3)
[2016-10-16 02:53] LABS: CALCIUM 9.1 mg/dL (8.5-10.1); CREATININE 1.1 mg/dL (0.7-1.3)
--- NOTE | 2016-10-16 04:17 | HOSP ---
Subjective - Review of Symptoms Events since last encounter: Hospitalist Encounter Patient's Na 122 as per earlier discussion with Dr. Gale, patient to be transferred to ICU for Hypertonic NS infusion. Patient is asymptomatic, VSS. Discussed case with Court Worker LEIGH ANN Gill, who accepted the patient. Physical Examination Vital Signs: Vital Signs Temperature 98.1 F 10/15/16 22:00 Pulse Rate 73 10/15/16 22:00 Respiratory Rate 20 10/15/16 22:00 Blood Pressure 123/73 10/15/16 22:00 O2 Sat by Pulse Oximetry (%) 100 10/15/16 21:00 Constitutional: Yes: No Distress, Calm, Thin Eyes: Yes: Conjunctiva Clear, PERRL HENT: Yes: WNL, Atraumatic, Normocephalic Neck: Yes: WNL, Supple, Trachea Midline Cardiovascular: Yes: WNL, Regular Rate and Rhythm, S1, S2 Respiratory: Yes: WNL, Regular, CTA Bilaterally Peripheral Pulses WNL: Yes Neurological: Yes: WNL, Alert, Oriented, Cran Nerves II-XII Intact Psychiatric: Yes: WNL, Alert, Oriented Labs: CBC, BMP 10/14/16 07:45 10/16/16 01:30 Laboratory Results - last 24 hr 10/15/16 10/15/16 10/15/16 07:35 15:05 20:40 Sodium 126 L 124 L* 122 L* Potassium 4.7 4.4 4.6 Chloride 93 L 89 L 87 L Carbon Dioxide 25 25 25 Anion Gap 8 10 10 BUN 8 8 7 Creatinine 1.1 1.1 1.1 Random Glucose 82 D 106 D 100 Serum Osmolality Calcium 8.7 8.4 L 8.8 Urine Osmolality 10/15/16 10/16/16 10/16/16 23:00 01:30 01:30 Sodium 120 L* Potassium 4.7 Chloride 85 L Carbon Dioxide 23 Anion Gap 12 BUN 9 D Creatinine 1.1 Random Glucose 89 Serum Osmolality 250 L Calcium 9.1 Urine Osmolality 608 D Current Medications Generic Name Dose Route Start Last Admin Trade Name Freq PRN Reason Stop Dose Admin Acetaminophen 650 mg 10/13/16 15:59 Tylenol - PO Q4H PRN FEVER OR PAIN Heparin Sodium (Porcine) 5,000 unit 10/13/16 22:00 10/15/16 21:49 Heparin - SQ 5,000 unit TID MAHAD Administration Sodium Chloride 500 mls @ 15 mls/hr 10/16/16 04:19 Sodium Chloride 3% IV 10/17/16 13:38 ASDIR ONE Ondansetron HCl 4 mg 10/13/16 15:59 Zofran Injection IVPB Q4H PRN NAUSEA Pseudoephedrine HCl 60 mg 10/14/16 23:00 10/15/16 21:50 Sudafed - PO 60 mg Q6H PRN Administration CONGESTION Critical Care Total Critical Care Time (in minutes): 32 Critical Care Statement: The care of this patient involved high complexity decision making to prevent further life threatening deterioration of the patient 's condition and/or to evalute & treat vital organ system(s) failure or risk of failure.
[2016-10-16] MEDS ORDERED: SODIUM CHLORIDE 3% 500 ML IV ONE ×2 (04:19→13:30)
[2016-10-16] MEDS ORDERED: PSEUDOEPHEDRINE HCL 60 MG TABLET PO PRN (05:14)
[2016-10-16] MEDS ORDERED: ACETAMINOPHEN 325 MG TABLET (FP) PO PRN (05:14)
[2016-10-16] MEDS ORDERED: ONDANSETRON 4 MG/2 ML VIAL IVPB PRN (05:14)
--- NOTE | 2016-10-16 05:15 | PN ---
Progress Note (short form) - Note Progress Note: Pt is a 36yr old man with PMHx of naso-sinus cancer s/p radiation and chemotherapy in 2011. Pt initially presented to the ER on 10/11 with CC of vomiting/diarrhea x 4 days. Pt admitted to the ICU for management of hyponatremia and borderline relative anemia. Sodium improved to 131 on 10/14, however, pt this a.m with hyponatremia to 120. Pt transferred back to the ICU for further management of hyponatremia, concerning for SIADH. Upon assessment, pt denies chest pain/sob/headache/dizziness/vomiting. Endorses intermittent palpitations and nausea. 132/99, HR 67 sinus on tele, RR 12-14, 100% on RA afebrile. A/ Gen: Alert, responding appropriately Pulm: No adventitious breath sounds appreciated, slightly diminished at bases Cardiac: s1, s2 sinus on tele Ab: +BSx4, no tenderness. denies diarrhea/constipation Renal: Using funes without dysuria Ex: Intact, no edema +2 bilateral pedal pulses Neuro: Denies pain, no focal deficit appreciated Plan: Pt in the ICU for management of recurrent severe hyponatremia concerning for SIADH Pulm: Concern for atelectasis -O2 prn for sat >94% -Incentive spirometer -OOB as able Renal: Hyponatremia, concern for SIADH -Serum osm 250, Urine 608 -Dr. Gale following -IVF per renal -Consider vasopressin antagonist, diuretic? -Replete K/Mag/Phos as needed -Strict I/Os -Fluid restriction per renal -Sodium to correct no more than 10mEq/24hr period -bmp q3 -f/u renal sono -f/u repeat urinalysis/urine creatinine and electrolytes Endo: Elevated TSH, low Free t3, cortisol wnl -Consider further workup in setting of history of naso-sinus cancer ID: -Monitor off antibiotics for now Cardiovascular -Monitor h/h, transfuse prn Neuro: -Seizure precautions -Pain management -Neuro checks Onc: -Consider consult given hx Prophylactic -DVT -PPI -Zofran prn
[2016-10-16] MEDS ORDERED: ONDANSETRON 4 MG/2 ML VIAL ONE (05:30)
[2016-10-16] MEDS ORDERED: HEPARIN NA (PORCINE) 5,000 UNITS/ML 1ML VIAL ONE (05:31)
[2016-10-16] MEDS: HEPARIN NA (PORCINE) 5,000 UNITS/ML 1ML VIAL SQ SCH ×3 (05:58→21:50)
[2016-10-16 07:38] LABS: BASOPHIL 1.4 % (0-2.0); EOSINOPHIL 3.3 % (0-4.5); MCH 25.2 pg (25.7-33.7); MCHC 33.9 g/dl (32.0-35.9); MEAN CELL VOLUME 74.3 fl (80-96); MEAN PLT VOLUME 7.2 fl (7.5-11.1); NEUTROPHILS 73.4 % (42.8-82.8); PLATELET COUNT 301 K/MM3 (134-434); RDW 15.2 % (11.9-15.9)
[2016-10-16 08:18] LABS: TROPONIN I < 0.02 ng/ml (0.00-0.05)
[2016-10-16 08:30] LABS: ALBUMIN 3.9 g/dl (3.4-5.0); ANION GAP 12 (8-16); BILIRUBIN,TOTAL 0.4 mg/dL (0.2-1.0); CO2 21 mmol/L (21-32); CREATININE 1.1 mg/dL (0.7-1.3); GLUCOSE,RANDOM 100 mg/dL (74-106); SGOT/AST 29 U/L (15-37); SGPT/ALT 23 U/L (12-78); TOT PROT 8.3 g/dl (6.4-8.2)
[2016-10-16 08:39] LABS: ALK PHOS 115 U/L (45-117)
[2016-10-16 08:56] LABS: MAGNESIUM 1.7 mg/dL (1.8-2.4); PHOSPHOROUS 3.3 mg/dL (2.5-4.9)
[2016-10-16] MEDS ORDERED: MAGNESIUM SULF 50% (8.12 MEQ/2 ML-1 GM VIAL) IVPB ONE (10:00)
[2016-10-16 11:18] LABS: CALCIUM 8.6 mg/dL (8.5-10.1); CREATININE 1.1 mg/dL (0.7-1.3); MAGNESIUM 1.6 mg/dL (1.8-2.4); PHOSPHOROUS 3.2 mg/dL (2.5-4.9)
[2016-10-16] MEDS ORDERED: PT OWN MED DRAWER 7, Y5N ONE ×2 (11:28→18:34)
[2016-10-16 12:13] LABS: URINE APPEARANCE CLEAR; URINE BILIRUBIN NEGATIVE (NEGATIVE); URINE BLOOD NEGATIVE (NEGATIVE); URINE COLOR STRAW; URINE GLUCOSE (UA) NEGATIVE (NEGATIVE); URINE KETONE NEGATIVE (NEGATIVE); URINE LEUK ESTERASE NEGATIVE (NEGATIVE); URINE NITRITE NEGATIVE (NEGATIVE); URINE PROTEIN NEGATIVE (NEGATIVE); URINE UROBILINOGEN NEGATIVE E.U./dl (0.2-1.0)
[2016-10-16 12:46] LABS: CALCIUM 8.9 mg/dL (8.5-10.1); CREATININE 1.2 mg/dL (0.7-1.3)
--- NOTE | 2016-10-16 13:04 | PN ---
Progress Note, Physician History of Present Illness: Pt seen and examined at bedside. He is back in the ICU. He was transferred out over the weekend however his sodium dropped and he was sent back for hypertonic saline. Pt denies excess water consumption and he denies drinking more than one liter per day. He complains of decreased PO intake. He denies vomiting or diarrhea. - Current Medication List Current Medications: Active Medications Acetaminophen (Tylenol -) 650 mg PO Q4H PRN PRN Reason: FEVER OR PAIN Heparin Sodium (Porcine) (Heparin -) 5,000 unit SQ TID MAHAD Last Admin: 10/16/16 05:58 Dose: 5,000 unit Sodium Chloride (Sodium Chloride 3%) 500 mls @ 15 mls/hr IV ASDIR ONE Stop: 10/17/16 13:38 Last Admin: 10/16/16 05:28 Dose: 15 mls/hr Ondansetron HCl (Zofran Injection) 4 mg IVPB Q4H PRN PRN Reason: NAUSEA Last Admin: 10/16/16 05:58 Dose: 4 mg Pseudoephedrine HCl (Sudafed -) 60 mg PO Q6H PRN PRN Reason: CONGESTION - Objective Vital Signs: Vital Signs Temperature 97.6 F 10/16/16 10:15 Pulse Rate 82 10/16/16 10:15 Respiratory Rate 15 10/16/16 10:15 Blood Pressure 134/88 10/16/16 10:15 O2 Sat by Pulse Oximetry (%) 100 10/15/16 21:00 Constitutional: Yes: Calm Eyes: Yes: Conjunctiva Clear HENT: Yes: Atraumatic Cardiovascular: Yes: S1, S2 Respiratory: Yes: CTA Bilaterally Gastrointestinal: Yes: Soft Genitourinary: Yes: WNL Musculoskeletal: Yes: WNL Edema: No Neurological: Yes: Oriented Psychiatric: Yes: Oriented Labs: CBC, BMP 10/16/16 07:10 10/16/16 12:00 Problem List - Problems (1) Abdominal pain Code(s): R10.9 - UNSPECIFIED ABDOMINAL PAIN Qualifiers: Abdominal location: epigastric Qualified Code(s): R10.13 - Epigastric pain (2) Chills Code(s): R68.83 - CHILLS (WITHOUT FEVER) (3) Hyponatremia Code(s): E87.1 - HYPO-OSMOLALITY AND HYPONATREMIA (4) Nausea, vomiting and diarrhea Code(s): R11.2 - NAUSEA WITH VOMITING, UNSPECIFIED R19.7 - DIARRHEA, UNSPECIFIED (5) History of nasopharyngeal cancer Code(s): Z85.819 - PRSNL HX OF MALIG NEOPLM OF UNSP SITE LIP,ORAL CAV,& PHARYNX (6) Anemia Code(s): D64.9 - ANEMIA, UNSPECIFIED (7) Hyperkalemia Code(s): E87.5 - HYPERKALEMIA Assessment/Plan Current Medications Generic Name Dose Route Start Last Admin Trade Name Freq PRN Reason Stop Dose Admin Acetaminophen 650 mg 10/16/16 05:14 Tylenol - PO Q4H PRN FEVER OR PAIN Heparin Sodium (Porcine) 5,000 unit 10/16/16 06:00 10/16/16 05:58 Heparin - SQ 5,000 unit TID MAHAD Administration Sodium Chloride 500 mls @ 15 mls/hr 10/16/16 04:19 10/16/16 05:28 Sodium Chloride 3% IV 10/17/16 13:38 15 mls/hr ASDIR ONE Administration Ondansetron HCl 4 mg 10/16/16 05:14 10/16/16 05:58 Zofran Injection IVPB 4 mg Q4H PRN Administration NAUSEA Pseudoephedrine HCl 60 mg 10/16/16 05:14 Sudafed - PO Q6H PRN CONGESTION Laboratory Tests 10/15/16 10/16/16 10/16/16 23:00 09:45 11:45 Sodium 118 L* Urine Osmolality 608 D Ur Random Sodium 178 10/16/16 12:00 Sodium 118 L* Urine Osmolality Ur Random Sodium Impression 1. hyponatremia 2. hyperkalemia 3. anemia 4. history of nasopharyngeal cancer 5. diarrhea 6. vomiting 7. leukopenia Plan - sodium is worsening - increase 3 percent saline to 20 cc per hour - cont to monitor sodium - urine osm is concentrated, likely secondary to ADH release. Initially pt responded well to saline and sodium improved. I doubt this is secondary to polydipsia as he did not drink much fluid and the urine osm is very high. - will follow sodiums through the course of the day - pt has history of malignancy, check mri brain, and ct chest abd pelvis - keep in ICU - restrict free water - avoid a change of sodium of greater than 10 meq in 24 hours - dvt prophylaxis - will follow closely Thank you for this consultation Dr Link
--- NOTE | 2016-10-16 13:32 | PN ---
Progress Note, Physician History of Present Illness: seen and examined in ICU transferred here for severe hyponatremia feels well - Current Medication List Current Medications: Active Medications Acetaminophen (Tylenol -) 650 mg PO Q4H PRN PRN Reason: FEVER OR PAIN Heparin Sodium (Porcine) (Heparin -) 5,000 unit SQ TID MAHAD Last Admin: 10/16/16 05:58 Dose: 5,000 unit Sodium Chloride (Sodium Chloride 3%) 500 mls @ 20 mls/hr IV ASDIR ONE Stop: 10/17/16 14:29 Ondansetron HCl (Zofran Injection) 4 mg IVPB Q4H PRN PRN Reason: NAUSEA Last Admin: 10/16/16 05:58 Dose: 4 mg Pseudoephedrine HCl (Sudafed -) 60 mg PO Q6H PRN PRN Reason: CONGESTION - Objective Vital Signs: Vital Signs Temperature 97.6 F 10/16/16 10:15 Pulse Rate 82 10/16/16 10:15 Respiratory Rate 15 10/16/16 10:15 Blood Pressure 134/88 10/16/16 10:15 O2 Sat by Pulse Oximetry (%) 100 10/15/16 21:00 Constitutional: Yes: Well Nourished, No Distress, Calm Eyes: Yes: Conjunctiva Clear, EOM Intact HENT: Yes: WNL, Atraumatic, Normocephalic Neck: Yes: Supple, Trachea Midline Cardiovascular: Yes: Regular Rate and Rhythm Respiratory: Yes: CTA Bilaterally Gastrointestinal: Yes: Soft. No: Tenderness Musculoskeletal: Yes: WNL Extremities: Yes: WNL Edema: No Neurological: Yes: WNL, Alert, Oriented, Cran Nerves II-XII Intact, Other ( global muscle strength 5/5 and symmetric) Labs: CBC, BMP 10/16/16 07:10 10/16/16 12:00 Assessment/Plan 36M with pmh of nasopharyngeal Ca in remission here with nausea vomiting and found to have severe symptomatic hyponatremia. 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 FEN: 3% Saline @ 15ml/hr hyponatremia-trend BMP q4h on regular diet encourage salt intake PPx: HSQ no GI PPx needed no deconditioning issues
--- NOTE | 2016-10-16 15:13 | PN ---
Teaching Attending Note Name of Resident: Andrei Pemberton ATTENDING PHYSICIAN STATEMENT I saw and evaluated the patient. I reviewed the resident's note and discussed the case with the resident. I agree with the resident's findings and plan as documented. SUBJECTIVE: Patient seen and examined in the ICU. Transferred for 3% saline therapy. No significant diarrhea or N/V. No CP or SOB. Intake & Output 10/13/16 10/14/16 10/15/16 10/16/16 23:59 23:59 23:59 23:59 Intake Total 260 3900 3200 500 Output Total 1975 3700 2800 400 Balance -1715 200 400 100 Weight 168 lb 6.4 oz 168 lb 9 oz 162 lb 4 oz 168 lb Last Vital Signs Temp Pulse Resp BP Pulse Ox 98.4 F 81 13 123/88 100 10/16/16 14:00 10/16/16 14:00 10/16/16 14:00 10/16/16 14:00 10/16/16 09:00 Active Medications Acetaminophen (Tylenol -) 650 mg PO Q4H PRN PRN Reason: FEVER OR PAIN Heparin Sodium (Porcine) (Heparin -) 5,000 unit SQ TID MAHAD Last Admin: 10/16/16 13:11 Dose: 5,000 unit Sodium Chloride (Sodium Chloride 3%) 500 mls @ 20 mls/hr IV ASDIR ONE Stop: 10/17/16 14:29 Last Admin: 10/16/16 13:30 Dose: 20 mls/hr Ondansetron HCl (Zofran Injection) 4 mg IVPB Q4H PRN PRN Reason: NAUSEA Last Admin: 10/16/16 05:58 Dose: 4 mg Pseudoephedrine HCl (Sudafed -) 60 mg PO Q6H PRN PRN Reason: CONGESTION Constitutional: Yes: NAD Eyes: Yes: Conjunctiva Clear HENT: Yes: Atraumatic Cardiovascular: Yes: S1, S2 Respiratory: Yes: CTA Bilaterally Gastrointestinal: Yes: Soft Genitourinary: Yes: WNL Musculoskeletal: Yes: WNL Edema: No Neurological: Yes: Oriented Psychiatric: Yes: Oriented Labs: Laboratory Results - last 24 hr 10/15/16 10/15/16 10/15/16 15:05 20:40 23:00 WBC RBC Hgb Hct MCV MCHC RDW Plt Count MPV Neutrophils % Lymphocytes % Monocytes % Eosinophils % Basophils % Sodium 124 L* 122 L* Potassium 4.4 4.6 Chloride 89 L 87 L Carbon Dioxide 25 25 Anion Gap 10 10 BUN 8 7 Creatinine 1.1 1.1 Creat Clearance w eGFR Random Glucose 106 D 100 Serum Osmolality Calcium 8.4 L 8.8 Phosphorus Magnesium Total Bilirubin AST ALT Alkaline Phosphatase Creatine Kinase Creatine Kinase Index CK-MB (CK-2) CK-MB (CK-2) Rel Index Troponin I Total Protein Albumin Urine Color Urine Appearance Urine pH Ur Specific [place] Urine Protein Urine Glucose (UA) Urine Ketones Urine Blood Urine Nitrite Urine Bilirubin Urine Urobilinogen Ur Leukocyte Esterase Urine Osmolality 608 D Ur Random Sodium Ur Random Potassium Ur Random Chloride Urine Creatinine 10/16/16 10/16/16 10/16/16 01:30 01:30 07:10 WBC RBC Hgb Hct MCV MCHC RDW Plt Count MPV Neutrophils % Lymphocytes % Monocytes % Eosinophils % Basophils % Sodium 120 L* 117 L* Potassium 4.7 4.5 Chloride 85 L 84 L Carbon Dioxide 23 21 Anion Gap 12 12 BUN 9 D 9 Creatinine 1.1 1.1 Creat Clearance w eGFR > 60 Random Glucose 89 100 Serum Osmolality 250 L Calcium 9.1 9.0 Phosphorus 3.3 Magnesium 1.7 L D Total Bilirubin 0.4 D AST 29 D ALT 23 D Alkaline Phosphatase 115 Creatine Kinase Creatine Kinase Index CK-MB (CK-2) CK-MB (CK-2) Rel Index Troponin I Total Protein 8.3 H D Albumin 3.9 D Urine Color Urine Appearance Urine pH Ur Specific [place] Urine Protein Urine Glucose (UA) Urine Ketones Urine Blood Urine Nitrite Urine Bilirubin Urine Urobilinogen Ur Leukocyte Esterase Urine Osmolality Ur Random Sodium Ur Random Potassium Ur Random Chloride Urine Creatinine 10/16/16 10/16/16 10/16/16 07:10 07:10 07:10 WBC 5.0 RBC 4.10 Hgb 10.3 L D Hct 30.4 L MCV 74.3 L MCHC 33.9 RDW 15.2 Plt Count 301 MPV 7.2 L Neutrophils % 73.4 Lymphocytes % 16.4 Monocytes % 5.5 Eosinophils % 3.3 D Basophils % 1.4 Sodium Potassium Chloride Carbon Dioxide Anion Gap BUN Creatinine Creat Clearance w eGFR Random Glucose Serum Osmolality Calcium Phosphorus Cancelled Magnesium Cancelled Total Bilirubin AST ALT Alkaline Phosphatase Creatine Kinase 223 D Creatine Kinase Index < 0.4 CK-MB (CK-2) < 1 CK-MB (CK-2) Rel Index Troponin I < 0.02 Total Protein Albumin Urine Color Urine Appearance Urine pH Ur Specific [place] Urine Protein Urine Glucose (UA) Urine Ketones Urine Blood Urine Nitrite Urine Bilirubin Urine Urobilinogen Ur Leukocyte Esterase Urine Osmolality Ur Random Sodium Ur Random Potassium Ur Random Chloride Urine Creatinine 10/16/16 10/16/16 10/16/16 07:10 09:45 11:45 WBC RBC Hgb Hct MCV MCHC RDW Plt Count MPV Neutrophils % Lymphocytes % Monocytes % Eosinophils % Basophils % Sodium 118 L* Potassium 4.7 Chloride 84 L Carbon Dioxide 23 Anion Gap 11 BUN 9 Creatinine 1.1 Creat Clearance w eGFR Random Glucose 85 Serum Osmolality Calcium 8.6 Phosphorus 3.2 Magnesium 1.6 L Total Bilirubin AST ALT Alkaline Phosphatase Creatine Kinase Creatine Kinase Index CK-MB (CK-2) CK-MB (CK-2) Rel Index Cancelled Troponin I Total Protein Albumin Urine Color Urine Appearance Urine pH Ur Specific [place] Urine Protein Urine Glucose (UA) Urine Ketones Urine Blood Urine Nitrite Urine Bilirubin Urine Urobilinogen Ur Leukocyte Esterase Urine Osmolality Ur Random Sodium 178 Ur Random Potassium 88.6 Ur Random Chloride 235 Urine Creatinine 10/16/16 10/16/16 10/16/16 11:45 11:45 12:00 WBC RBC Hgb Hct MCV MCHC RDW Plt Count MPV Neutrophils % Lymphocytes % Monocytes % Eosinophils % Basophils % Sodium 118 L* Potassium 4.4 Chloride 84 L Carbon Dioxide 24 Anion Gap 10 BUN 10 Creatinine 1.2 Creat Clearance w eGFR Random Glucose 81 Serum Osmolality Calcium 8.9 Phosphorus Magnesium Total Bilirubin AST ALT Alkaline Phosphatase Creatine Kinase Creatine Kinase Index CK-MB (CK-2) CK-MB (CK-2) Rel Index Troponin I Total Protein Albumin Urine Color Straw Urine Appearance Clear Urine pH 8.0 Ur Specific [place] 1.015 Urine Protein Negative Urine Glucose (UA) Negative Urine Ketones Negative Urine Blood Negative Urine Nitrite Negative Urine Bilirubin Negative Urine Urobilinogen Negative Ur Leukocyte Esterase Negative Urine Osmolality Ur Random Sodium Ur Random Potassium Ur Random Chloride Urine Creatinine 108.0 Problem List - Problems (1) Abdominal pain Code(s): R10.9 - UNSPECIFIED ABDOMINAL PAIN Qualifiers: Abdominal location: epigastric Qualified Code(s): R10.13 - Epigastric pain (2) Chills Code(s): R68.83 - CHILLS (WITHOUT FEVER) (3) Hyponatremia Code(s): E87.1 - HYPO-OSMOLALITY AND HYPONATREMIA (4) Nausea, vomiting and diarrhea Code(s): R11.2 - NAUSEA WITH VOMITING, UNSPECIFIED R19.7 - DIARRHEA, UNSPECIFIED (5) History of nasopharyngeal cancer Code(s): Z85.819 - PRSNL HX OF MALIG NEOPLM OF UNSP SITE LIP,ORAL CAV,& PHARYNX (6) Anemia Code(s): D64.9 - ANEMIA, UNSPECIFIED (7) Hyperkalemia Code(s): E87.5 - HYPERKALEMIA Assessment/Plan 3% saline per Renal Follow Sodium Agree with imaging workup Restrict free water Avoid a change of sodium of greater than 10 meq in 24 hours VTE prophylaxis ICU monitoring Dr Higuera CCTime 35"
--- NOTE | 2016-10-16 15:35 | PN ---
Physical Exam: SUBJECTIVE: Patient seen and examined at bedside. Feels well, no complaints. OBJECTIVE: Vital Signs Period Temp Pulse Resp BP Sys/Stein Pulse Ox Last 24 Hr 97.6 F-98.4 F 64-82 12-20 120-134/73-99 100-100 GENERAL: The patient is awake, alert, and fully oriented, in no acute distress. HEAD: Normal with no signs of trauma. EYES: PERRL, extraocular movements intact, sclera anicteric, conjunctiva clear. No ptosis. LUNGS: Breath sounds equal, clear to auscultation bilaterally, no wheezes, no crackles, no accessory muscle use. HEART: Regular rate and rhythm, S1, S2 without murmur, rub or gallop. ABDOMEN: Soft, nontender, nondistended, normoactive bowel sounds, no guarding, no rebound EXTREMITIES: 2+ pulses, warm, well-perfused, no edema. NEUROLOGICAL: Cranial nerves II through XII grossly intact. Normal speech, gait not observed. Laboratory Results - last 24 hr 10/15/16 10/15/16 10/15/16 15:05 20:40 23:00 WBC RBC Hgb Hct MCV MCHC RDW Plt Count MPV Neutrophils % Lymphocytes % Monocytes % Eosinophils % Basophils % Sodium 124 L* 122 L* Potassium 4.4 4.6 Chloride 89 L 87 L Carbon Dioxide 25 25 Anion Gap 10 10 BUN 8 7 Creatinine 1.1 1.1 Creat Clearance w eGFR Random Glucose 106 D 100 Serum Osmolality Calcium 8.4 L 8.8 Phosphorus Magnesium Total Bilirubin AST ALT Alkaline Phosphatase Creatine Kinase Creatine Kinase Index CK-MB (CK-2) CK-MB (CK-2) Rel Index Troponin I Total Protein Albumin Urine Color Urine Appearance Urine pH Ur Specific [place] Urine Protein Urine Glucose (UA) Urine Ketones Urine Blood Urine Nitrite Urine Bilirubin Urine Urobilinogen Ur Leukocyte Esterase Urine Osmolality 608 D Ur Random Sodium Ur Random Potassium Ur Random Chloride Urine Creatinine 10/16/16 10/16/16 10/16/16 01:30 01:30 07:10 WBC RBC Hgb Hct MCV MCHC RDW Plt Count MPV Neutrophils % Lymphocytes % Monocytes % Eosinophils % Basophils % Sodium 120 L* 117 L* Potassium 4.7 4.5 Chloride 85 L 84 L Carbon Dioxide 23 21 Anion Gap 12 12 BUN 9 D 9 Creatinine 1.1 1.1 Creat Clearance w eGFR > 60 Random Glucose 89 100 Serum Osmolality 250 L Calcium 9.1 9.0 Phosphorus 3.3 Magnesium 1.7 L D Total Bilirubin 0.4 D AST 29 D ALT 23 D Alkaline Phosphatase 115 Creatine Kinase Creatine Kinase Index CK-MB (CK-2) CK-MB (CK-2) Rel Index Troponin I Total Protein 8.3 H D Albumin 3.9 D Urine Color Urine Appearance Urine pH Ur Specific [place] Urine Protein Urine Glucose (UA) Urine Ketones Urine Blood Urine Nitrite Urine Bilirubin Urine Urobilinogen Ur Leukocyte Esterase Urine Osmolality Ur Random Sodium Ur Random Potassium Ur Random Chloride Urine Creatinine 10/16/16 10/16/16 10/16/16 07:10 07:10 07:10 WBC 5.0 RBC 4.10 Hgb 10.3 L D Hct 30.4 L MCV 74.3 L MCHC 33.9 RDW 15.2 Plt Count 301 MPV 7.2 L Neutrophils % 73.4 Lymphocytes % 16.4 Monocytes % 5.5 Eosinophils % 3.3 D Basophils % 1.4 Sodium Potassium Chloride Carbon Dioxide Anion Gap BUN Creatinine Creat Clearance w eGFR Random Glucose Serum Osmolality Calcium Phosphorus Cancelled Magnesium Cancelled Total Bilirubin AST ALT Alkaline Phosphatase Creatine Kinase 223 D Creatine Kinase Index < 0.4 CK-MB (CK-2) < 1 CK-MB (CK-2) Rel Index Troponin I < 0.02 Total Protein Albumin Urine Color Urine Appearance Urine pH Ur Specific [place] Urine Protein Urine Glucose (UA) Urine Ketones Urine Blood Urine Nitrite Urine Bilirubin Urine Urobilinogen Ur Leukocyte Esterase Urine Osmolality Ur Random Sodium Ur Random Potassium Ur Random Chloride Urine Creatinine 10/16/16 10/16/16 10/16/16 07:10 09:45 11:45 WBC RBC Hgb Hct MCV MCHC RDW Plt Count MPV Neutrophils % Lymphocytes % Monocytes % Eosinophils % Basophils % Sodium 118 L* Potassium 4.7 Chloride 84 L Carbon Dioxide 23 Anion Gap 11 BUN 9 Creatinine 1.1 Creat Clearance w eGFR Random Glucose 85 Serum Osmolality Calcium 8.6 Phosphorus 3.2 Magnesium 1.6 L Total Bilirubin AST ALT Alkaline Phosphatase Creatine Kinase Creatine Kinase Index CK-MB (CK-2) CK-MB (CK-2) Rel Index Cancelled Troponin I Total Protein Albumin Urine Color Urine Appearance Urine pH Ur Specific [place] Urine Protein Urine Glucose (UA) Urine Ketones Urine Blood Urine Nitrite Urine Bilirubin Urine Urobilinogen Ur Leukocyte Esterase Urine Osmolality Ur Random Sodium 178 Ur Random Potassium 88.6 Ur Random Chloride 235 Urine Creatinine 10/16/16 10/16/16 10/16/16 11:45 11:45 12:00 WBC RBC Hgb Hct MCV MCHC RDW Plt Count MPV Neutrophils % Lymphocytes % Monocytes % Eosinophils % Basophils % Sodium 118 L* Potassium 4.4 Chloride 84 L Carbon Dioxide 24 Anion Gap 10 BUN 10 Creatinine 1.2 Creat Clearance w eGFR Random Glucose 81 Serum Osmolality Calcium 8.9 Phosphorus Magnesium Total Bilirubin AST ALT Alkaline Phosphatase Creatine Kinase Creatine Kinase Index CK-MB (CK-2) CK-MB (CK-2) Rel Index Troponin I Total Protein Albumin Urine Color Straw Urine Appearance Clear Urine pH 8.0 Ur Specific [place] 1.015 Urine Protein Negative Urine Glucose (UA) Negative Urine Ketones Negative Urine Blood Negative Urine Nitrite Negative Urine Bilirubin Negative Urine Urobilinogen Negative Ur Leukocyte Esterase Negative Urine Osmolality Ur Random Sodium Ur Random Potassium Ur Random Chloride Urine Creatinine 108.0 Current Medications Generic Name Dose Route Start Last Admin Trade Name Freq PRN Reason Stop Dose Admin Acetaminophen 650 mg 10/16/16 05:14 Tylenol - PO Q4H PRN FEVER OR PAIN Heparin Sodium (Porcine) 5,000 unit 10/16/16 06:00 10/16/16 13:11 Heparin - SQ 5,000 unit TID MAHAD Administration Sodium Chloride 500 mls @ 20 mls/hr 10/16/16 13:30 10/16/16 13:30 Sodium Chloride 3% IV 10/17/16 14:29 20 mls/hr ASDIR ONE Administration Ondansetron HCl 4 mg 10/16/16 05:14 10/16/16 05:58 Zofran Injection IVPB 4 mg Q4H PRN Administration NAUSEA Pseudoephedrine HCl 60 mg 10/16/16 05:14 Sudafed - PO Q6H PRN CONGESTION ASSESSMENT/PLAN: 36 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 Severe hyponatremia --Na 113 on admission, corrected to 131 on 10/14, and dropped precipitously since then, this morning 117 --transferred back to ICU to start hypertonic saline now @ 20mL/hr; do not correct more than 10meq in 24 hours; bmp q6h --continue to fluid restrict --per renal, urine osm is concentrated, likely secondary to ADH release; given history of malignancy, will get MRI brain, CT chest/abdomen/pelvis Nausea, vomiting, diarrhea, resolved F/E/N Fluids: fluid restrict 1L Electrolytes: as above Nutrition: regular diet DVT prophylaxis: subq heparin, oob, ambulation Dispo: continues to require inpatient care. Full Code. Visit type - Emergency Visit Emergency Visit: Yes ED Registration Date: 10/11/16 Care time: The patient presented to the Emergency Department on the above date and was hospitalized for further evaluation of their emergent condition. - New Patient This patient is new to me today: Yes Date on this admission: 10/16/16 - Critical Care Critical Care patient: No
[2016-10-16 16:52] LABS: CALCIUM 8.8 mg/dL (8.5-10.1); CREATININE 1.2 mg/dL (0.7-1.3)
[2016-10-16 22:37] LABS: CALCIUM 8.7 mg/dL (8.5-10.1); CREATININE 1.2 mg/dL (0.7-1.3)
[2016-10-16] MEDS ORDERED: SODIUM CHLORIDE 3% 500 ML IVPB ONE (23:15)
[2016-10-17 02:43] LABS: CALCIUM 9.3 mg/dL (8.5-10.1); CREATININE 1.2 mg/dL (0.7-1.3)
[2016-10-17] MEDS: SODIUM CHLORIDE 1,000 ML IV SCH ×3 (02:45→19:06)
[2016-10-17] MEDS ORDERED: SODIUM CHLORIDE 1,000 ML IV SCH (03:00)
[2016-10-17] MEDS: HEPARIN NA (PORCINE) 5,000 UNITS/ML 1ML VIAL SQ SCH ×3 (06:08→21:21)
[2016-10-17 06:11] LABS: BASOPHIL 1.3 % (0-2.0); EOSINOPHIL 3.2 % (0-4.5); MCHC 33.7 g/dl (32.0-35.9); MEAN CELL VOLUME 74.3 fl (80-96); MEAN PLT VOLUME 7.4 fl (7.5-11.1); NEUTROPHILS 68.1 % (42.8-82.8); PLATELET COUNT 318 K/MM3 (134-434); RDW 15.3 % (11.9-15.9); WHITE BLOOD COUNT 4.8 K/mm3 (4.0-10.0)
[2016-10-17 06:44] LABS: CALCIUM 8.6 mg/dL (8.5-10.1)
[2016-10-17 06:45] LABS: CREATININE 1.1 mg/dL (0.7-1.3)
--- NOTE | 2016-10-17 12:25 | PN ---
Progress Note, Physician History of Present Illness: seen and examined in ICU feels well - Current Medication List Current Medications: Active Medications Acetaminophen (Tylenol -) 650 mg PO Q4H PRN PRN Reason: FEVER OR PAIN Heparin Sodium (Porcine) (Heparin -) 5,000 unit SQ TID MAHAD Last Admin: 10/17/16 06:08 Dose: 5,000 unit Sodium Chloride (Normal Saline -) 1,000 mls @ 150 mls/hr IV ASDIR MAHAD Ondansetron HCl (Zofran Injection) 4 mg IVPB Q4H PRN PRN Reason: NAUSEA Last Admin: 10/16/16 05:58 Dose: 4 mg Pseudoephedrine HCl (Sudafed -) 60 mg PO Q6H PRN PRN Reason: CONGESTION Last Admin: 10/16/16 18:35 Dose: 60 mg - Objective Vital Signs: Vital Signs Temperature 97.8 F 10/17/16 02:00 Pulse Rate 66 10/17/16 10:00 Respiratory Rate 16 10/17/16 10:00 Blood Pressure 119/84 10/17/16 10:00 O2 Sat by Pulse Oximetry (%) 100 10/17/16 08:39 Constitutional: Yes: Well Nourished, No Distress, Calm Eyes: Yes: Conjunctiva Clear, EOM Intact HENT: Yes: WNL, Atraumatic, Normocephalic Neck: Yes: Supple, Trachea Midline Cardiovascular: Yes: Regular Rate and Rhythm Respiratory: Yes: CTA Bilaterally Gastrointestinal: Yes: Soft. No: Tenderness Musculoskeletal: Yes: WNL Extremities: Yes: WNL Edema: No Neurological: Yes: WNL, Alert, Oriented, Cran Nerves II-XII Intact, Other ( global muscle strength 5/5 and symmetric) Labs: CBC, BMP 10/17/16 05:05 10/17/16 05:05 Assessment/Plan 36M with pmh of nasopharyngeal Ca in remission here with nausea vomiting and found to have severe symptomatic hyponatremia. 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 MRI brain results noted may need a CT scan to evaluate base of skull changes seen on imaging could be from radiation or metastasis will attempt to reach [place] to see if they have or need imaging or would like to take the patient as a transfer Could Be SIADH BMP at 4pm [facility] nephrology consult appreciated NS @ 150ml/hr hyponatremia improving 3% saline stopped 1 liter fluid restriction Diarrhea:resolved per patient do not suspect infectious source such as C dif or colitis no need for Abx at this time monitor Nasopharyngeal Ca: patient has follow up and is compliant outpt follow up will get records from [facility] FEN: NS @ 150ml/hr hyponatremia-trend BMP on regular diet encourage salt intake PPx: HSQ no GI PPx needed no deconditioning issues
--- NOTE | 2016-10-17 12:53 | PN ---
Progress Note, Physician History of Present Illness: Pt seen and examined at bedside. He is awake and alert. He has no complaints. He denies headache or change in vision. He denies loss of balance. - Current Medication List Current Medications: Active Medications Acetaminophen (Tylenol -) 650 mg PO Q4H PRN PRN Reason: FEVER OR PAIN Heparin Sodium (Porcine) (Heparin -) 5,000 unit SQ TID MAHAD Last Admin: 10/17/16 06:08 Dose: 5,000 unit Sodium Chloride (Normal Saline -) 1,000 mls @ 150 mls/hr IV ASDIR MAHAD Ondansetron HCl (Zofran Injection) 4 mg IVPB Q4H PRN PRN Reason: NAUSEA Last Admin: 10/16/16 05:58 Dose: 4 mg Pseudoephedrine HCl (Sudafed -) 60 mg PO Q6H PRN PRN Reason: CONGESTION Last Admin: 10/16/16 18:35 Dose: 60 mg - Objective Vital Signs: Vital Signs Temperature 97.8 F 10/17/16 02:00 Pulse Rate 66 10/17/16 10:00 Respiratory Rate 16 10/17/16 10:00 Blood Pressure 119/84 10/17/16 10:00 O2 Sat by Pulse Oximetry (%) 100 10/17/16 08:39 Constitutional: Yes: Calm Eyes: Yes: Conjunctiva Clear HENT: Yes: Atraumatic Cardiovascular: Yes: S1, S2 Respiratory: Yes: CTA Bilaterally Gastrointestinal: Yes: Soft Genitourinary: Yes: WNL Musculoskeletal: Yes: WNL Extremities: Yes: WNL Edema: No Integumentary: Yes: WNL Neurological: Yes: Oriented Psychiatric: Yes: Oriented Labs: CBC, BMP 10/17/16 05:05 10/17/16 05:05 - ....Imaging MRI: Report Reviewed Problem List - Problems (1) Abdominal pain Code(s): R10.9 - UNSPECIFIED ABDOMINAL PAIN Qualifiers: Abdominal location: epigastric Qualified Code(s): R10.13 - Epigastric pain (2) Chills Code(s): R68.83 - CHILLS (WITHOUT FEVER) (3) Hyponatremia Code(s): E87.1 - HYPO-OSMOLALITY AND HYPONATREMIA (4) Nausea, vomiting and diarrhea Code(s): R11.2 - NAUSEA WITH VOMITING, UNSPECIFIED R19.7 - DIARRHEA, UNSPECIFIED (5) History of nasopharyngeal cancer Code(s): Z85.819 - PRSNL HX OF MALIG NEOPLM OF UNSP SITE LIP,ORAL CAV,& PHARYNX (6) Anemia Code(s): D64.9 - ANEMIA, UNSPECIFIED (7) Hyperkalemia Code(s): E87.5 - HYPERKALEMIA Assessment/Plan Current Medications Generic Name Dose Route Start Last Admin Trade Name Freq PRN Reason Stop Dose Admin Acetaminophen 650 mg 10/16/16 05:14 Tylenol - PO Q4H PRN FEVER OR PAIN Heparin Sodium (Porcine) 5,000 unit 10/16/16 06:00 10/17/16 06:08 Heparin - SQ 5,000 unit TID MAHAD Administration Sodium Chloride 1,000 mls @ 150 mls/hr 10/17/16 09:48 Normal Saline - IV ASDIR MAHAD Ondansetron HCl 4 mg 10/16/16 05:14 10/16/16 05:58 Zofran Injection IVPB 4 mg Q4H PRN Administration NAUSEA Pseudoephedrine HCl 60 mg 10/16/16 05:14 10/16/16 18:35 Sudafed - PO 60 mg Q6H PRN Administration CONGESTION Impression 1. hyponatremia 2. hyperkalemia 3. anemia 4. history of nasopharyngeal cancer 5. diarrhea 6. vomiting 7. leukopenia Plan - sodium is improving and responding to saline - will repeat at 4 pm - cont with ns at 150 - will repeat urine osm and sodium in am - fluids were stopped after pt was transferred from the ICU to the medical [facility]. The pt then developed hyponatremia. His sodium however improves with fluids. Will follow closely - I followed his bloodwork through out the night and communicated with ICU over the phone twice - will follow sodiums through the course of the day - pt has history of malignancy, check mri brain, and ct chest abd pelvis - keep in ICU - discussed with ICU team - restrict free water - avoid a change of sodium of greater than 10 meq in 24 hours - dvt prophylaxis - will follow closely Thank you for this consultation Dr Link
--- NOTE | 2016-10-17 12:55 | PN ---
Physical Exam: SUBJECTIVE: Patient seen and examined at the bedside, complains of sore throat, slight reddness upon inspection. Patient stated decreased appetite yesterday. No N/V/D or abdominal discomfort. OBJECTIVE: Vital Signs Period Temp Pulse Resp BP Sys/Stein Pulse Ox Last 24 Hr 97.8 F-98.4 F 66-81 13-21 113-132/71-100 100-100 GENERAL: The patient is awake, alert, and fully oriented, in no acute distress. HEAD: Normal with no signs of trauma. EYES: PERRL, extraocular movements intact, sclera anicteric, conjunctiva clear. No ptosis. ENT: Ears normal, nares patent, oropharynx redness noted without exudates, moist mucous membranes. NECK: Trachea midline, full range of motion, supple. LUNGS: Breath sounds equal, clear to auscultation bilaterally, no wheezes, no crackles, no accessory muscle use. HEART: Regular rate and rhythm, S1, S2 without murmur, rub or gallop. ABDOMEN: Soft, nontender, nondistended, normoactive bowel sounds, no guarding, no rebound, no hepatosplenomegaly, no masses. EXTREMITIES: 2+ pulses, warm, well-perfused, no edema. NEUROLOGICAL: Cranial nerves II through XII grossly intact. Normal speech, gait not observed. PSYCH: Normal mood, normal affect. SKIN: Warm, dry, normal turgor, no rashes or lesions noted Laboratory Tests 10/16/16 10/16/16 10/16/16 01:30 07:10 09:45 Sodium 120 L* 117 L* 118 L* 10/16/16 10/16/16 10/16/16 12:00 15:50 20:30 Sodium 118 L* 120 L* 119 L* 10/17/16 10/17/16 02:13 05:05 Sodium 124 L* 125 L CBCD WBC 4.8 K/mm3 (4.0-10.0) 10/17/16 05:05 RBC 3.85 M/mm3 (4.00-5.60) L 10/17/16 05:05 Hgb 9.6 GM/dL (11.7-16.9) L 10/17/16 05:05 Hct 28.6 % (35.4-49) L 10/17/16 05:05 MCV 74.3 fl (80-96) L 10/17/16 05:05 MCHC 33.7 g/dl (32.0-35.9) 10/17/16 05:05 RDW 15.3 % (11.9-15.9) 10/17/16 05:05 Plt Count 318 K/MM3 (134-434) 10/17/16 05:05 MPV 7.4 fl (7.5-11.1) L 10/17/16 05:05 CMP Sodium 125 mmol/L (136-145) L 10/17/16 05:05 Potassium 4.4 mmol/L (3.5-5.1) 10/17/16 05:05 Chloride 91 mmol/L (98-107) L 10/17/16 05:05 Carbon Dioxide 23 mmol/L (21-32) 10/17/16 05:05 Anion Gap 11 (8-16) 10/17/16 05:05 BUN 13 mg/dL (7-18) 10/17/16 05:05 Creatinine 1.1 mg/dL (0.7-1.3) 10/17/16 05:05 Creat Clearance w eGFR > 60 (>60) 10/16/16 07:10 Calcium 8.6 mg/dL (8.5-10.1) 10/17/16 05:05 Total Bilirubin 0.4 mg/dL (0.2-1.0) D 10/16/16 07:10 AST 29 U/L (15-37) D 10/16/16 07:10 ALT 23 U/L (12-78) D 10/16/16 07:10 Alkaline Phosphatase 115 U/L (45-117) 10/16/16 07:10 Total Protein 8.3 g/dl (6.4-8.2) H D 10/16/16 07:10 Albumin 3.9 g/dl (3.4-5.0) D 10/16/16 07:10 Laboratory Results - last 24 hr 10/16/16 10/16/16 10/17/16 15:50 20:30 02:13 WBC RBC Hgb Hct MCV MCHC RDW Plt Count MPV Neutrophils % Lymphocytes % Monocytes % Eosinophils % Basophils % Sodium 120 L* 119 L* 124 L* Potassium 4.1 4.6 5.0 Chloride 83 L 85 L 89 L Carbon Dioxide 23 25 25 Anion Gap 14 9 10 BUN 10 11 13 Creatinine 1.2 1.2 1.2 Random Glucose 80 68 L 89 D Calcium 8.8 8.7 9.3 Magnesium 10/17/16 10/17/16 05:05 05:05 WBC 4.8 RBC 3.85 L Hgb 9.6 L Hct 28.6 L MCV 74.3 L MCHC 33.7 RDW 15.3 Plt Count 318 MPV 7.4 L Neutrophils % 68.1 Lymphocytes % 19.8 D Monocytes % 7.6 Eosinophils % 3.2 Basophils % 1.3 Sodium 125 L Potassium 4.4 Chloride 91 L Carbon Dioxide 23 Anion Gap 11 BUN 13 Creatinine 1.1 Random Glucose 81 Calcium 8.6 Magnesium 2.0 D Current Medications Generic Name Dose Route Start Last Admin Trade Name Freq PRN Reason Stop Dose Admin Acetaminophen 650 mg 10/16/16 05:14 Tylenol - PO Q4H PRN FEVER OR PAIN Heparin Sodium (Porcine) 5,000 unit 10/16/16 06:00 10/17/16 14:34 Heparin - SQ 5,000 unit TID MAHAD Administration Sodium Chloride 1,000 mls @ 150 mls/hr 10/17/16 09:48 10/17/16 12:00 Normal Saline - IV 150 mls/hr ASDIR MAHAD Administration Ondansetron HCl 4 mg 10/16/16 05:14 10/16/16 05:58 Zofran Injection IVPB 4 mg Q4H PRN Administration NAUSEA Pseudoephedrine HCl 60 mg 10/16/16 05:14 10/16/16 18:35 Sudafed - PO 60 mg Q6H PRN Administration CONGESTION ASSESSMENT/PLAN: 36 year old male with 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 Severe hyponatremia --marked drop in Na on 10/16 to 117; etiology unclear; per renal clinical suspicion for SIADH --was started on hypertonic saline yesterday and Na corrected to 125 today --now on NS, do NOT correct > 0.5mEq/h/24hours --restrict fluids to 1L per day --remains asymptomatic Sinusitis --on exam, complains of sore throat and oropharynx redness; no tenderness on palpation of sinuses, no discharge; afebrile, no leukocytosis --10/16/2016 MRI brain: almost total opacification of the included right and partial opacification of the included left maxillary antrum with air fluid levels; partial opacification of the ethmoid air cells in the sphenoid, mainly on the right --hold antibiotics for now --ENT consult ordered Nausea, vomiting, diarrhea, resolved F/E/N - Regular diet - Monitor electrolytes - Continue IV fluids per renal Prophylaxis - Heparin 5000U SQ TID Dispo - Requires continued inpatient care Visit type - Emergency Visit Emergency Visit: Yes ED Registration Date: 10/11/16 Care time: The patient presented to the Emergency Department on the above date and was hospitalized for further evaluation of their emergent condition. - New Patient This patient is new to me today: No - Critical Care Critical Care patient: No
--- NOTE | 2016-10-17 13:40 | PN ---
Teaching Attending Note Name of Resident: Andrei Pemberton ATTENDING PHYSICIAN STATEMENT I saw and evaluated the patient. I reviewed the resident's note and discussed the case with the resident. I agree with the resident's findings and plan as documented. SUBJECTIVE: Patient seen and examined in the ICU. Off 3% saline therapy. No significant diarrhea or N/V. No CP or SOB. Tolerating PO intake. Intake & Output 10/14/16 10/15/16 10/16/16 10/17/16 23:59 23:59 23:59 23:59 Intake Total 3900 3200 1030 915 Output Total 3700 2800 1350 725 Balance 200 400 -320 190 Weight 168 lb 9 oz 162 lb 4 oz 168 lb 163 lb 9.6 oz Last Vital Signs Temp Pulse Resp BP Pulse Ox 98.2 F 78 15 120/92 100 10/17/16 10:00 10/17/16 12:30 10/17/16 12:30 10/17/16 12:30 10/17/16 08:39 Active Medications Acetaminophen (Tylenol -) 650 mg PO Q4H PRN PRN Reason: FEVER OR PAIN Heparin Sodium (Porcine) (Heparin -) 5,000 unit SQ TID [facility] Last Admin: 10/17/16 06:08 Dose: 5,000 unit Sodium Chloride (Normal Saline -) 1,000 mls @ 150 mls/hr IV ASDIR [facility] Last Admin: 10/17/16 12:00 Dose: 150 mls/hr Ondansetron HCl (Zofran Injection) 4 mg IVPB Q4H PRN PRN Reason: NAUSEA Last Admin: 10/16/16 05:58 Dose: 4 mg Pseudoephedrine HCl (Sudafed -) 60 mg PO Q6H PRN PRN Reason: CONGESTION Last Admin: 10/16/16 18:35 Dose: 60 mg Constitutional: Yes: NAD Eyes: Yes: Conjunctiva Clear HENT: Yes: Atraumatic Cardiovascular: Yes: S1, S2 Respiratory: Yes: CTA Bilaterally Gastrointestinal: Yes: Soft Genitourinary: Yes: WNL Musculoskeletal: Yes: WNL Edema: No Neurological: Yes: Oriented Psychiatric: Yes: Oriented Labs: Laboratory Results - last 24 hr 10/16/16 10/16/16 10/17/16 15:50 20:30 02:13 WBC RBC Hgb Hct MCV MCHC RDW Plt Count MPV Neutrophils % Lymphocytes % Monocytes % Eosinophils % Basophils % Sodium 120 L* 119 L* 124 L* Potassium 4.1 4.6 5.0 Chloride 83 L 85 L 89 L Carbon Dioxide 23 25 25 Anion Gap 14 9 10 BUN 10 11 13 Creatinine 1.2 1.2 1.2 Random Glucose 80 68 L 89 D Calcium 8.8 8.7 9.3 Magnesium 10/17/16 10/17/16 05:05 05:05 WBC 4.8 RBC 3.85 L Hgb 9.6 L Hct 28.6 L MCV 74.3 L MCHC 33.7 RDW 15.3 Plt Count 318 MPV 7.4 L Neutrophils % 68.1 Lymphocytes % 19.8 D Monocytes % 7.6 Eosinophils % 3.2 Basophils % 1.3 Sodium 125 L Potassium 4.4 Chloride 91 L Carbon Dioxide 23 Anion Gap 11 BUN 13 Creatinine 1.1 Random Glucose 81 Calcium 8.6 Magnesium 2.0 D Problem List - Problems (1) Abdominal pain Code(s): R10.9 - UNSPECIFIED ABDOMINAL PAIN Qualifiers: Abdominal location: epigastric Qualified Code(s): R10.13 - Epigastric pain (2) Chills Code(s): R68.83 - CHILLS (WITHOUT FEVER) (3) Hyponatremia Code(s): E87.1 - HYPO-OSMOLALITY AND HYPONATREMIA (4) Nausea, vomiting and diarrhea Code(s): R11.2 - NAUSEA WITH VOMITING, UNSPECIFIED R19.7 - DIARRHEA, UNSPECIFIED (5) History of nasopharyngeal cancer Code(s): Z85.819 - PRSNL HX OF MALIG NEOPLM OF UNSP SITE LIP,ORAL CAV,& PHARYNX (6) Anemia Code(s): D64.9 - ANEMIA, UNSPECIFIED (7) Hyperkalemia Code(s): E87.5 - HYPERKALEMIA Assessment/Plan Off 3% saline Follow Sodium Imaging workup ongoing Restrict free water Avoid a change of sodium of greater than 10 meq in [address] Higuear CCTime 35"
[2016-10-17 15:44] LABS: CALCIUM 8.5 mg/dL (8.5-10.1); CREATININE 1.3 mg/dL (0.7-1.3)
[2016-10-18] MEDS: HEPARIN NA (PORCINE) 5,000 UNITS/ML 1ML VIAL SQ SCH ×3 (05:43→21:25)
[2016-10-18 06:58] LABS: BASOPHIL 1.9 % (0-2.0); EOSINOPHIL 3.4 % (0-4.5); MCH 25.2 pg (25.7-33.7); MCHC 33.6 g/dl (32.0-35.9); MEAN PLT VOLUME 8.1 fl (7.5-11.1); NEUTROPHILS 64.6 % (42.8-82.8); PLATELET COUNT 319 K/MM3 (134-434); RDW 15.5 % (11.9-15.9); WHITE BLOOD COUNT 4.8 K/mm3 (4.0-10.0)
[2016-10-18 07:23] LABS: CALCIUM 8.3 mg/dL (8.5-10.1)
[2016-10-18 07:26] LABS: CREATININE 1.3 mg/dL (0.7-1.3); MAGNESIUM 2.1 mg/dL (1.8-2.4); PHOSPHOROUS 3.5 mg/dL (2.5-4.9)
[2016-10-18] MEDS: SODIUM CHLORIDE 1,000 ML IV SCH ×3 (09:52→23:07)
--- NOTE | 2016-10-18 11:04 | PN ---
Progress Note, Physician History of Present Illness: seen and examined in ICU feels well - Current Medication List Current Medications: Active Medications Acetaminophen (Tylenol -) 650 mg PO Q4H PRN PRN Reason: FEVER OR PAIN Heparin Sodium (Porcine) (Heparin -) 5,000 unit SQ TID MAHAD Last Admin: 10/18/16 05:43 Dose: 5,000 unit Sodium Chloride (Normal Saline -) 1,000 mls @ 150 mls/hr IV ASDIR MAHAD Last Admin: 10/18/16 09:52 Dose: 150 mls/hr Ondansetron HCl (Zofran Injection) 4 mg IVPB Q4H PRN PRN Reason: NAUSEA Last Admin: 10/16/16 05:58 Dose: 4 mg Pseudoephedrine HCl (Sudafed -) 60 mg PO Q6H PRN PRN Reason: CONGESTION Last Admin: 10/16/16 18:35 Dose: 60 mg - Objective Vital Signs: Vital Signs Temperature 98.3 F 10/18/16 06:36 Pulse Rate 72 10/18/16 08:34 Respiratory Rate 13 10/18/16 08:34 Blood Pressure 104/74 10/18/16 08:34 O2 Sat by Pulse Oximetry (%) 100 10/18/16 08:38 Constitutional: Yes: Well Nourished, No Distress, Calm Eyes: Yes: Conjunctiva Clear, EOM Intact HENT: Yes: WNL, Atraumatic, Normocephalic Neck: Yes: Supple, Trachea Midline Cardiovascular: Yes: Regular Rate and Rhythm Respiratory: Yes: CTA Bilaterally Gastrointestinal: Yes: Soft. No: Tenderness Musculoskeletal: Yes: WNL Extremities: Yes: WNL Edema: No Neurological: Yes: WNL, Alert, Oriented, Cran Nerves II-XII Intact, Other ( global muscle strength 5/5 and symmetric) Labs: CBC, BMP 10/18/16 05:20 10/18/16 05:20 Assessment/Plan 36M with pmh of nasopharyngeal Ca in remission here with nausea vomiting and found to have severe symptomatic hyponatremia. 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 but unlikely given that his CT scans and MRI brain have been negative for any mass Could Be SIADH Zofran nephrology consult appreciated continue NS @ 150ml/hr hyponatremia improving 1 liter fluid restriction Diarrhea:resolved per patient do not suspect infectious source such as C dif or colitis no need for Abx at this time monitor Nasopharyngeal Ca: patient has follow up and is compliant outpt follow up records obtained from [facility] and in physical chart FEN: NS @ 150ml/hr hyponatremia-trend BMP on regular diet encourage salt intake PPx: HSQ no GI PPx needed no deconditioning issues
--- NOTE | 2016-10-18 12:15 | PN ---
Progress Note, Physician History of Present Illness: Pt seen and examined at bedside. He is wake and alert. He overall feels well. He feels that his appetite is improving. - Current Medication List Current Medications: Active Medications Acetaminophen (Tylenol -) 650 mg PO Q4H PRN PRN Reason: FEVER OR PAIN Heparin Sodium (Porcine) (Heparin -) 5,000 unit SQ TID MAHAD Last Admin: 10/18/16 05:43 Dose: 5,000 unit Sodium Chloride (Normal Saline -) 1,000 mls @ 150 mls/hr IV ASDIR MAHAD Last Admin: 10/18/16 09:52 Dose: 150 mls/hr Ondansetron HCl (Zofran Injection) 4 mg IVPB Q4H PRN PRN Reason: NAUSEA Last Admin: 10/16/16 05:58 Dose: 4 mg Pseudoephedrine HCl (Sudafed -) 60 mg PO Q6H PRN PRN Reason: CONGESTION Last Admin: 10/16/16 18:35 Dose: 60 mg - Objective Vital Signs: Vital Signs Temperature 98.3 F 10/18/16 06:36 Pulse Rate 72 10/18/16 08:34 Respiratory Rate 13 10/18/16 08:34 Blood Pressure 104/74 10/18/16 08:34 O2 Sat by Pulse Oximetry (%) 100 10/18/16 08:38 Constitutional: Yes: Calm Eyes: Yes: Conjunctiva Clear HENT: Yes: Atraumatic Cardiovascular: Yes: S1, S2 Respiratory: Yes: CTA Bilaterally Gastrointestinal: Yes: Soft Genitourinary: Yes: WNL Musculoskeletal: Yes: WNL Edema: No Neurological: Yes: Oriented Psychiatric: Yes: Oriented Labs: CBC, BMP 10/18/16 05:20 10/18/16 05:20 - ....Imaging Cat Scan: Report Reviewed (report reviewed - chest abd pelvis) Problem List - Problems (1) Abdominal pain Code(s): R10.9 - UNSPECIFIED ABDOMINAL PAIN Qualifiers: Abdominal location: epigastric Qualified Code(s): R10.13 - Epigastric pain (2) Chills Code(s): R68.83 - CHILLS (WITHOUT FEVER) (3) Hyponatremia Code(s): E87.1 - HYPO-OSMOLALITY AND HYPONATREMIA (4) Nausea, vomiting and diarrhea Code(s): R11.2 - NAUSEA WITH VOMITING, UNSPECIFIED R19.7 - DIARRHEA, UNSPECIFIED (5) History of nasopharyngeal cancer Code(s): Z85.819 - PRSNL HX OF MALIG NEOPLM OF UNSP SITE LIP,ORAL CAV,& PHARYNX (6) Anemia Code(s): D64.9 - ANEMIA, UNSPECIFIED (7) Hyperkalemia Code(s): E87.5 - HYPERKALEMIA Assessment/Plan Current Medications Generic Name Dose Route Start Last Admin Trade Name Freq PRN Reason Stop Dose Admin Acetaminophen 650 mg 10/16/16 05:14 Tylenol - PO Q4H PRN FEVER OR PAIN Heparin Sodium (Porcine) 5,000 unit 10/16/16 06:00 10/18/16 05:43 Heparin - SQ 5,000 unit TID MAHAD Administration Sodium Chloride 1,000 mls @ 150 mls/hr 10/17/16 09:48 10/18/16 09:52 Normal Saline - IV 150 mls/hr ASDIR MAHAD Administration Ondansetron HCl 4 mg 10/16/16 05:14 10/16/16 05:58 Zofran Injection IVPB 4 mg Q4H PRN Administration NAUSEA Pseudoephedrine HCl 60 mg 10/16/16 05:14 10/16/16 18:35 Sudafed - PO 60 mg Q6H PRN Administration CONGESTION Impression 1. hyponatremia 2. hyperkalemia 3. anemia 4. history of nasopharyngeal cancer 5. diarrhea 6. vomiting 7. leukopenia Plan - sodium continues to improve with fluids - cont with NS at 150 cc per hour - repeat labs in am - I will adjust fluids in am - urine osm improved - can transfer to medical yanez - discussed with ICU team - restrict free water for now - encourage PO intake - dvt prophylaxis - will follow closely Thank you for this consultation Dr Link
--- NOTE | 2016-10-18 12:58 | PN ---
Physical Exam: SUBJECTIVE: Patient seen and examined sitting on edge of bed. Feels well. No complaints. OBJECTIVE: Vital Signs Period Temp Pulse Resp BP Sys/Stein Pulse Ox Last 24 Hr 97.8 F-98.4 F 62-76 12-15 104-135/74-97 100-100 GENERAL: The patient is awake, alert, and fully oriented, in no acute distress. HEAD: Normal with no signs of trauma. EYES: PERRL, extraocular movements intact, sclera anicteric, conjunctiva clear. No ptosis. LUNGS: Breath sounds equal, clear to auscultation bilaterally, no wheezes, no crackles, no accessory muscle use. HEART: Regular rate and rhythm, S1, S2 without murmur, rub or gallop. ABDOMEN: Soft, nontender, nondistended, normoactive bowel sounds, no guarding, no rebound, no hepatosplenomegaly, no masses. EXTREMITIES: 2+ pulses, warm, well-perfused, no edema. NEUROLOGICAL: Cranial nerves II through XII grossly intact. Normal speech, gait not observed. PSYCH: Normal mood, normal affect. SKIN: Warm, dry, normal turgor, no rashes or lesions noted Laboratory Results - last 24 hr 10/17/16 10/18/16 10/18/16 15:00 05:20 05:20 WBC 4.8 RBC 3.83 L Hgb 9.6 L Hct 28.7 L MCV 75.0 L MCHC 33.6 RDW 15.5 Plt Count 319 MPV 8.1 Neutrophils % 64.6 Lymphocytes % 24.7 D Monocytes % 5.4 Eosinophils % 3.4 Basophils % 1.9 Sodium 127 L 131 L Potassium 4.7 5.0 Chloride 92 L 101 Carbon Dioxide 25 23 Anion Gap 10 7 L BUN 16 D 15 Creatinine 1.3 1.3 Random Glucose 87 71 L Calcium 8.5 8.3 L Phosphorus 3.5 Magnesium 2.1 Urine Osmolality Cancelled Ur Random Sodium 10/18/16 10/18/16 06:00 06:00 WBC RBC Hgb Hct MCV MCHC RDW Plt Count MPV Neutrophils % Lymphocytes % Monocytes % Eosinophils % Basophils % Sodium Potassium Chloride Carbon Dioxide Anion Gap BUN Creatinine Random Glucose Calcium Phosphorus Magnesium Urine Osmolality 319 D Ur Random Sodium 108 Current Medications Generic Name Dose Route Start Last Admin Trade Name Freq PRN Reason Stop Dose Admin Acetaminophen 650 mg 10/16/16 05:14 Tylenol - PO Q4H PRN FEVER OR PAIN Heparin Sodium (Porcine) 5,000 unit 10/16/16 06:00 10/18/16 05:43 Heparin - SQ 5,000 unit TID MAHAD Administration Sodium Chloride 1,000 mls @ 150 mls/hr 10/17/16 09:48 10/18/16 09:52 Normal Saline - IV 150 mls/hr ASDIR MAHAD Administration Ondansetron HCl 4 mg 10/16/16 05:14 10/16/16 05:58 Zofran Injection IVPB 4 mg Q4H PRN Administration NAUSEA Pseudoephedrine HCl 60 mg 10/16/16 05:14 10/16/16 18:35 Sudafed - PO 60 mg Q6H PRN Administration CONGESTION ASSESSMENT/PLAN 36 year old male with 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 Severe hyponatremia --Na continues to improve 131 today on NS @ 150mL/hr --restrict fluids to 1L per day --remains asymptomatic --renal following Sinusitis --10/16/2016 MRI brain: almost total opacification of the included right and partial opacification of the included left maxillary antrum with air fluid levels; partial opacification of the ethmoid air cells in the sphenoid, mainly on the right --hold antibiotics for now --ENT consult done (no note as yet) by Dr. Carey; patient will f/u as outpatient Nausea, vomiting, diarrhea, resolved F/E/N - Regular diet - Monitor electrolytes - Continue IV fluids per renal Prophylaxis - Heparin 5000U SQ TID Dispo - Requires continued inpatient care. On discharge patient needs to follow up with Dr. Link (renal), Dr. Carey (ENT), and Dr. Baker (PCP). PLEASE MAKE SURE PATIENT GETS A CD ROM OF HIS IMAGING STUDIES TO TAKE TO [facility]. Full Code. Visit type - Emergency Visit Emergency Visit: Yes ED Registration Date: 10/11/16 Care time: The patient presented to the Emergency Department on the above date and was hospitalized for further evaluation of their emergent condition. - New Patient This patient is new to me today: No - Critical Care Critical Care patient: No
--- NOTE | 2016-10-18 13:07 | PN ---
Teaching Attending Note Name of Resident: Andrei Pemberton ATTENDING PHYSICIAN STATEMENT I saw and evaluated the patient. I reviewed the resident's note and discussed the case with the resident. I agree with the resident's findings and plan as documented. SUBJECTIVE: Pt seen and examined in the ICU. Feels better. No nausea, vomiting or diarrhea. No shortness of breath or chest pain. OBJECTIVE: Last Vital Signs Temp Pulse Resp BP Pulse Ox 98.3 F 72 13 104/74 100 10/18/16 06:36 10/18/16 08:34 10/18/16 08:34 10/18/16 08:34 10/18/16 08:38 Intake & Output 10/15/16 10/16/16 10/17/16 10/18/16 23:59 23:59 23:59 23:59 Intake Total 3200 1030 3210 1800 Output Total 2800 1350 2975 1300 Balance 400 -320 235 500 Weight 162 lb 4 oz 168 lb 163 lb 9.6 oz 165 lb 6.4 oz Gen: NAD at rest Heart: RRR Lung: clear to auscultation Abd: soft, nontender Ext: no edema CBC, BMP 10/18/16 05:20 10/18/16 05:20 Active Medications Acetaminophen (Tylenol -) 650 mg PO Q4H PRN PRN Reason: FEVER OR PAIN Heparin Sodium (Porcine) (Heparin -) 5,000 unit SQ TID MAHAD Last Admin: 10/18/16 05:43 Dose: 5,000 unit Sodium Chloride (Normal Saline -) 1,000 mls @ 150 mls/hr IV ASDIR MAHAD Last Admin: 10/18/16 09:52 Dose: 150 mls/hr Ondansetron HCl (Zofran Injection) 4 mg IVPB Q4H PRN PRN Reason: NAUSEA Last Admin: 10/16/16 05:58 Dose: 4 mg Pseudoephedrine HCl (Sudafed -) 60 mg PO Q6H PRN PRN Reason: CONGESTION Last Admin: 10/16/16 18:35 Dose: 60 mg ASSESSMENT AND PLAN: Hyponatremia Hyperkalemia h/o Nasopharyngeal Ca Dehydration from Vomiting/Diarrhea - continue IVF per renal - monitor lytes closely - correct Na no more than 0.5mEq/hr - PO as tolerated - DVT prophylaxis - can monitor on floor
--- NOTE | 2016-10-18 17:15 | CON.ENT ---
Consult Consult Specialty:: ENT Reason for Consultation:: Sinusitis - History of Present Illness Chief Complaint: Sinus pressure and congestion History of Present Illness: 36 yo male with recent sinus pressure and congestion who was started on PO Augmentin 1 week ago. He had mistaken the proper dosage and developed weakness and GI symptoms. This was followed by hyponatremia from which he is recovering. MRI done this admission reveals sinus opacification and A/F levels. 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 - History Source History Provided By: Patient - Past Medical History Infectious Disease: Yes: Other (sinusitis) - Alcohol/Substance Use Hx Alcohol Use: No - Smoking History Smoking history: Never smoked Have you smoked in the past 12 months: No Home Medications - Allergies Allergies/Adverse Reactions: Allergies Allergy/AdvReac Type Severity Reaction Status Date / Time No Known Allergies Allergy Verified 10/11/16 10:36 - Home Medications Home Medications: Ambulatory Orders Amoxicillin/Potassium Clav [Amox-Clav 875-125 mg Tablet] 1 each PO BID 10/11/16 Physical Exam-ENT Vital Signs: Vital Signs Temperature 98.2 F 10/18/16 14:19 Pulse Rate 73 10/18/16 14:19 Respiratory Rate 20 10/18/16 14:19 Blood Pressure 117/87 10/18/16 14:19 O2 Sat by Pulse Oximetry (%) 100 10/18/16 08:38 Problem List - Problems (1) Sinusitis, acute Assessment/Plan: Pt with recent treatment for sinusitis with Augmentin. Significant crusting noted. Recommend follow-up as an outpatient for debridement of crusting and treatment as needed if still with signs of infection. Pt to continue to use nasal saline regularly Code(s): J01.90 - ACUTE SINUSITIS, UNSPECIFIED Qualifiers: Sinusitis location: maxillary Procedure Note Procedure: Nasal endoscopy was performed after obtaining verbal consent. Topical was spray for anesthesia and decongestion. Scope was passed bilaterally. Septal deviation to the left was noted with synechiae on the left. Dry crusts were noted bilaterally more posteriorly in region of OMC and nasopharynx. No lesions were noted.
[2016-10-18] MEDS ORDERED: ONDANSETRON 4 MG/2 ML VIAL IVPB PRN (17:33)
[2016-10-18] MEDS ORDERED: PSEUDOEPHEDRINE HCL 60 MG TABLET PO PRN (17:33)
[2016-10-18] MEDS ORDERED: ACETAMINOPHEN 325 MG TABLET (FP) PO PRN (17:33)
[2016-10-18 17:54] LABS: CALCIUM 8.8 mg/dL (8.5-10.1); CREATININE 1.2 mg/dL (0.7-1.3)
[2016-10-19] MEDS: SODIUM CHLORIDE 1,000 ML IV SCH ×2 (05:51→22:14)
[2016-10-19] MEDS: HEPARIN NA (PORCINE) 5,000 UNITS/ML 1ML VIAL SQ SCH ×3 (05:51→22:14)
[2016-10-19 08:21] LABS: BASOPHIL 1.8 % (0-2.0); MCH 25.3 pg (25.7-33.7); MCHC 33.2 g/dl (32.0-35.9); MEAN CELL VOLUME 76.3 fl (80-96); MEAN PLT VOLUME 7.7 fl (7.5-11.1); NEUTROPHILS 59.8 % (42.8-82.8); PLATELET COUNT 251 K/MM3 (134-434); RDW 15.9 % (11.9-15.9)
[2016-10-19 09:19] LABS: CALCIUM 8.7 mg/dL (8.5-10.1); CREATININE 1.2 mg/dL (0.7-1.3); MAGNESIUM 1.9 mg/dL (1.8-2.4); PHOSPHOROUS 4.1 mg/dL (2.5-4.9)
--- NOTE | 2016-10-19 10:14 | PN ---
Physical Exam: SUBJECTIVE: Patient seen and examined. He states he feels well, denies any chest pain, dizziness, numbness or tingling or any other discomfort. States he no longer has any abdominal pain or discomfort. Is able to tolerate his meals without difficulty. Had BM today, no diarrhea, but was loose. Sodium levels today: 134 States he was slightly nauseous this morning, but nausea has since resolved. OBJECTIVE: Vital Signs Period Temp Pulse Resp BP Sys/Stein Pulse Ox Last 24 Hr 98.2 F-98.2 F 66-76 18-20 117-127/76-87 100 GENERAL: The patient is awake, alert, and fully oriented, in no acute distress. HEAD: Normal with no signs of trauma. EYES: conjunctiva clear. No ptosis. ENT: Ears normal, nares patent, oropharynx clear without exudates, moist mucous membranes. NECK: Trachea midline, full range of motion, supple. LUNGS: Breath sounds equal, no wheezes, no crackles, no accessory muscle use. HEART: Regular rate and rhythm, S1, S2 ABDOMEN: soft, non distended, denies pain, denies diarrhea or any other GI discomfort. EXTREMITIES: 2+ pulses, warm, well-perfused, no edema. NEUROLOGICAL: Normal speech, gait not observed. PSYCH: Normal mood, normal affect. SKIN: Warm, dry, normal turgor, no rashes or lesions noted Laboratory Results - last 24 hr 10/18/16 10/18/16 10/19/16 05:20 17:00 06:15 WBC RBC Hgb Hct MCV MCHC RDW Plt Count MPV Neutrophils % Lymphocytes % Monocytes % Eosinophils % Basophils % Sodium 133 L 134 L Potassium 4.6 5.3 H Chloride 97 L 100 Carbon Dioxide 25 23 Anion Gap 11 11 BUN 14 14 Creatinine 1.2 1.2 Random Glucose 101 D 82 Calcium 8.8 8.7 Phosphorus 4.1 Magnesium 1.9 Urine Osmolality Cancelled 10/19/16 06:15 WBC 5.0 RBC 3.60 L Hgb 9.1 L Hct 27.5 L MCV 76.3 L MCHC 33.2 RDW 15.9 Plt Count 251 D MPV 7.7 Neutrophils % 59.8 Lymphocytes % 26.1 Monocytes % 8.3 Eosinophils % 4.0 Basophils % 1.8 Sodium Potassium Chloride Carbon Dioxide Anion Gap BUN Creatinine Random Glucose Calcium Phosphorus Magnesium Urine Osmolality Active Medications Generic Name Dose Route Start Last Admin Trade Name Freq PRN Reason Stop Dose Admin Acetaminophen 650 mg 10/18/16 17:33 Tylenol - PO Q4H PRN FEVER OR PAIN Heparin Sodium (Porcine) 5,000 unit 10/18/16 22:00 10/19/16 05:51 Heparin - SQ 5,000 unit TID MAHAD Administration Sodium Chloride 1,000 mls @ 150 mls/hr 10/18/16 17:33 10/19/16 05:51 Normal Saline - IV 150 mls/hr ASDIR MAHAD Administration Ondansetron HCl 4 mg 10/18/16 17:33 Zofran Injection IVPB Q4H PRN NAUSEA Pseudoephedrine HCl 60 mg 10/18/16 17:33 Sudafed - PO Q6H PRN CONGESTION ASSESSMENT/PLAN: Patient is a 36 year old male with a significant past medical history of nasopharyngeal carcinoma in 2011, s/p chemotherapy and radiation. He presented to the ED with nausea, vomiting, diarrhea after accidentally taking a double dose of Augmentin for a sinus infection. On admission to the ED his sodium levels were noted to be 113 and was admitted to the ICU or closer monitoring. He was transferred back to Med Surg on 10/13/2016 when his sodium levels improved , However, on 10/16/2016 he was transferred back to the ICU after his sodium levels were 117 and started on 3% saline therapy. 10/18/2016 when his sodium levels improved and was transferred back to a medical surgical floor. Imaging: Chest CT 10/17/2016 - Normal CT, no evidence of metastatic disease or acute pathology Brain MRI 10/16/2016 - No acute intracranial pathology. Sinusitits with air fluid levels in the maxillary area Nasal Endoscopy 10/18/2016 - No lesions noted on nasal endoscopy Electrolytes: Hyponatremia - improving Assessment/Plan: Sodium improving today with IV fluids, NA 134 on (Normal saline at 150cc/hr) He is also on a fluid restriction of 1 liter He remains asymptomatic Continue to monitor Renal following and will adjust IV fluids Head/Neck Sinusitis - acute Assessment/Plan: Monitor off antibiotics Seen by ENT on 10/18, and a nasal endoscopy was performed. No lesions noted on nasal endoscopy He remains afebrile, WBC stable, monitor off antibiotics Oncology: Nasopharyngeal carcinoma Assessment/Plan: He is s/p chemo and radiation at [place] on 2011 No active treatment at this time He will follow up as outpatient with his oncologist Hematology: Anemia - acute Assessment/Plan: Monitor h/h closely, trending down No signs of bleeding noted, likely dilutional Iron studies Monitor trend GI: Gastroenteritis - resolved Assessment/Plan: Nausea, vomiting, diarrhea, resolved Tolerating diet, no diarrhea reported F.E.N. Fluids: Normal saline @150cc/hr Electrolytes: Hyponatremia: improving @134 Hyperkalemia: 5.3, monitor trend Prophylaxis: DVT: Heparin 5000U SQ TID and ambulation GI: none needed at this time, BM today Disposition: Continues to require inpatient care. Full Code. Will need the following on discharge: (1) Close follow up with renal (Dr. Link), (1) follow up with his PCP Dr. Baker and (3) Will need CDs of all imaging conducted at [facility]. Visit type - Emergency Visit Emergency Visit: Yes ED Registration Date: 10/11/16 Care time: The patient presented to the Emergency Department on the above date and was hospitalized for further evaluation of their emergent condition. - New Patient This patient is new to me today: Yes Date on this admission: 10/19/16 - Critical Care Critical Care patient: No - Discharge Referral Referred to [facility] Med P.C.: No
[2016-10-19] MEDS ORDERED: SODIUM CHLORIDE 1,000 ML IV SCH ×2 (13:25→16:12)
--- NOTE | 2016-10-19 16:10 | PN ---
Progress Note, Physician History of Present Illness: Pt seen and examined at bedside. He is awake and alert. He feels much better today. - Current Medication List Current Medications: Active Medications Acetaminophen (Tylenol -) 650 mg PO Q4H PRN PRN Reason: FEVER OR PAIN Heparin Sodium (Porcine) (Heparin -) 5,000 unit SQ TID [facility] Last Admin: 10/19/16 13:55 Dose: 5,000 unit Sodium Chloride (Normal Saline -) 1,000 mls @ 100 mls/hr IV ASDIR [facility] Last Admin: 10/19/16 13:55 Dose: 100 mls/hr Ondansetron HCl (Zofran Injection) 4 mg IVPB Q4H PRN PRN Reason: NAUSEA Pseudoephedrine HCl (Sudafed -) 60 mg PO Q6H PRN PRN Reason: CONGESTION - Objective Vital Signs: Vital Signs Temperature 98.4 F 10/19/16 14:18 Pulse Rate 76 10/19/16 14:18 Respiratory Rate 20 10/19/16 14:18 Blood Pressure 137/75 10/19/16 14:18 O2 Sat by Pulse Oximetry (%) 100 10/19/16 10:00 Constitutional: Yes: Calm Eyes: Yes: Conjunctiva Clear HENT: Yes: Atraumatic Neck: Yes: Supple Cardiovascular: Yes: S1, S2 Respiratory: Yes: CTA Bilaterally Gastrointestinal: Yes: Soft Genitourinary: Yes: WNL Musculoskeletal: Yes: WNL Extremities: Yes: WNL Edema: No Neurological: Yes: Oriented Psychiatric: Yes: Oriented Labs: CBC, BMP 10/19/16 06:15 10/19/16 06:15 Problem List - Problems (1) Abdominal pain Code(s): R10.9 - UNSPECIFIED ABDOMINAL PAIN Qualifiers: Abdominal location: epigastric Qualified Code(s): R10.13 - Epigastric pain (2) Chills Code(s): R68.83 - CHILLS (WITHOUT FEVER) (3) Hyponatremia Code(s): E87.1 - HYPO-OSMOLALITY AND HYPONATREMIA (4) Nausea, vomiting and diarrhea Code(s): R11.2 - NAUSEA WITH VOMITING, UNSPECIFIED R19.7 - DIARRHEA, UNSPECIFIED (5) History of nasopharyngeal cancer Code(s): Z85.819 - PRSNL HX OF MALIG NEOPLM OF UNSP SITE LIP,ORAL CAV,& PHARYNX (6) Anemia Code(s): D64.9 - ANEMIA, UNSPECIFIED (7) Hyperkalemia Code(s): E87.5 - HYPERKALEMIA Assessment/Plan Current Medications Generic Name Dose Route Start Last Admin Trade Name Freq PRN Reason Stop Dose Admin Acetaminophen 650 mg 10/18/16 17:33 Tylenol - PO Q4H PRN FEVER OR PAIN Heparin Sodium (Porcine) 5,000 unit 10/18/16 22:00 10/19/16 13:55 Heparin - SQ 5,000 unit TID MAHAD Administration Sodium Chloride 1,000 mls @ 100 mls/hr 10/19/16 13:25 10/19/16 13:55 Normal Saline - IV 100 mls/hr ASDIR MAHAD Administration Ondansetron HCl 4 mg 10/18/16 17:33 Zofran Injection IVPB Q4H PRN NAUSEA Pseudoephedrine HCl 60 mg 10/18/16 17:33 Sudafed - PO Q6H PRN CONGESTION Impression 1. hyponatremia 2. hyperkalemia 3. anemia 4. history of nasopharyngeal cancer 5. diarrhea 6. vomiting 7. leukopenia Plan - will decrease fluids further - will give salt tabs - repeat labs in am - will check sodium tonight - restrict free water for now - encourage PO intake - dvt prophylaxis - will follow closely Thank you for this consultation Dr Link
[2016-10-19 18:34] LABS: CALCIUM 8.9 mg/dL (8.5-10.1); CREATININE 1.3 mg/dL (0.7-1.3)
[2016-10-19] MEDS: SODIUM CHLORIDE 1 GM TABLET PO SCH (22:15)
[2016-10-20] MEDS: SODIUM CHLORIDE 1,000 ML IV SCH (02:41)
[2016-10-20] MEDS: HEPARIN NA (PORCINE) 5,000 UNITS/ML 1ML VIAL SQ SCH ×2 (06:16→14:12)
[2016-10-20 06:28] LABS: BASOPHIL 1.2 % (0-2.0); EOSINOPHIL 4.7 % (0-4.5); MCH 25.3 pg (25.7-33.7); MCHC 33.2 g/dl (32.0-35.9); MEAN CELL VOLUME 76.2 fl (80-96); MEAN PLT VOLUME 7.8 fl (7.5-11.1); NEUTROPHILS 59.9 % (42.8-82.8); PLATELET COUNT 270 K/MM3 (134-434); RDW 16.2 % (11.9-15.9); WHITE BLOOD COUNT 4.7 K/mm3 (4.0-10.0)
[2016-10-20 06:56] LABS: ALBUMIN 3.1 g/dl (3.4-5.0); ANION GAP 9 (8-16); CALCIUM 8.5 mg/dL (8.5-10.1); CO2 25 mmol/L (21-32); CREATININE 1.2 mg/dL (0.7-1.3); GLUCOSE,RANDOM 82 mg/dL (74-106); SGOT/AST 24 U/L (15-37); SGPT/ALT 33 U/L (12-78)
[2016-10-20 06:58] LABS: ALK PHOS 97 U/L (45-117); BILIRUBIN,TOTAL 0.2 mg/dL (0.2-1.0); TOT PROT 6.5 g/dl (6.4-8.2)
--- NOTE | 2016-10-20 10:07 | PN ---
Physical Exam: SUBJECTIVE: Patient seen and examined OBJECTIVE: Vital Signs Period Temp Pulse Resp BP Sys/Stein Pulse Ox Last 24 Hr 98.0 F-98.6 F 65-84 18-20 114-137/65-91 100 GENERAL: The patient is awake, alert, and fully oriented, in no acute distress. HEAD: Normal with no signs of trauma. EYES: PERRL, extraocular movements intact, sclera anicteric, conjunctiva clear. No ptosis. ENT: Ears normal, nares patent, oropharynx clear without exudates, moist mucous membranes. NECK: Trachea midline, full range of motion, supple. LUNGS: Breath sounds equal, clear to auscultation bilaterally, no wheezes, no crackles, no accessory muscle use. HEART: Regular rate and rhythm, S1, S2 without murmur, rub or gallop. ABDOMEN: Soft, nontender, nondistended, normoactive bowel sounds, no guarding, no rebound, no hepatosplenomegaly, no masses. EXTREMITIES: 2+ pulses, warm, well-perfused, no edema. NEUROLOGICAL: Cranial nerves II through XII grossly intact. Normal speech, gait not observed. PSYCH: Normal mood, normal affect. SKIN: Warm, dry, normal turgor, no rashes or lesions noted Laboratory Results - last 24 hr 10/19/16 10/20/16 10/20/16 17:30 05:15 05:15 WBC 4.7 RBC 3.53 L Hgb 8.9 L Hct 26.9 L MCV 76.2 L MCHC 33.2 RDW 16.2 H Plt Count 270 MPV 7.8 Neutrophils % 59.9 Lymphocytes % 26.4 Monocytes % 7.8 Eosinophils % 4.7 H Basophils % 1.2 Sodium 131 L 133 L Potassium 4.3 4.6 Chloride 94 L 99 Carbon Dioxide 25 25 Anion Gap 12 9 BUN 14 13 Creatinine 1.3 1.2 Creat Clearance w eGFR > 60 Random Glucose 99 D 82 Calcium 8.9 8.5 Total Bilirubin 0.2 D AST 24 ALT 33 D Alkaline Phosphatase 97 Total Protein 6.5 D Albumin 3.1 L D Active Medications Generic Name Dose Route Start Last Admin Trade Name Freq PRN Reason Stop Dose Admin Acetaminophen 650 mg 10/18/16 17:33 Tylenol - PO Q4H PRN FEVER OR PAIN Heparin Sodium (Porcine) 5,000 unit 10/18/16 22:00 10/20/16 06:16 Heparin - SQ 5,000 unit TID MAHAD Administration Sodium Chloride 1,000 mls @ 85 mls/hr 10/19/16 18:44 10/20/16 02:41 Normal Saline - IV 85 mls/hr ASDIR MAHAD Administration Ondansetron HCl 4 mg 10/18/16 17:33 Zofran Injection IVPB Q4H PRN NAUSEA Pseudoephedrine HCl 60 mg 10/18/16 17:33 Sudafed - PO Q6H PRN CONGESTION Sodium Chloride 1 gm 10/19/16 22:00 10/19/16 22:15 Sodium Chloride Tablet - PO 1 gm BID MAHAD Administration ASSESSMENT/PLAN:
[2016-10-20] MEDS: SODIUM CHLORIDE 1 GM TABLET PO SCH (10:32)
--- NOTE | 2016-10-20 12:55 | DS ---
Physical Exam: SUBJECTIVE: Patient seen and examined. He states he feels well, denies any chest pain, dizziness, numbness or tingling or any other discomfort. States he no longer has any abdominal pain or discomfort. Is able to tolerate his meals without difficulty. Had BM yesterday, no diarrhea, but was loose. Sodium levels today: 133 Denies nausea today. OBJECTIVE: GENERAL: The patient is awake, alert, and fully oriented, in no acute distress. HEAD: Normal with no signs of trauma. EYES: conjunctiva clear. No ptosis. ENT: Ears normal, nares patent, oropharynx clear without exudates, moist mucous membranes. NECK: Trachea midline, full range of motion, supple. LUNGS: Breath sounds equal, no wheezes, no crackles, no accessory muscle use. HEART: Regular rate and rhythm, S1, S2 ABDOMEN: soft, non distended, denies pain, denies diarrhea or any other GI discomfort. EXTREMITIES: 2+ pulses, warm, well-perfused, no edema. NEUROLOGICAL: Normal speech, gait not observed. PSYCH: Normal mood, normal affect. SKIN: Warm, dry, normal turgor, no rashes or lesions noted Vital Signs Period Temp Pulse Resp BP Sys/Stein Pulse Ox Last 24 Hr 98.0 F-98.9 F 65-76 20-20 114-137/65-77 100 PHYSICAL EXAM LABS Laboratory Results - last 24 hr 10/19/16 10/20/16 10/20/16 17:30 05:15 05:15 WBC 4.7 RBC 3.53 L Hgb 8.9 L Hct 26.9 L MCV 76.2 L MCHC 33.2 RDW 16.2 H Plt Count 270 MPV 7.8 Neutrophils % 59.9 Lymphocytes % 26.4 Monocytes % 7.8 Eosinophils % 4.7 H Basophils % 1.2 Sodium 131 L 133 L Potassium 4.3 4.6 Chloride 94 L 99 Carbon Dioxide 25 25 Anion Gap 12 9 BUN 14 13 Creatinine 1.3 1.2 Creat Clearance w eGFR > 60 Random Glucose 99 D 82 Calcium 8.9 8.5 Total Bilirubin 0.2 D AST 24 ALT 33 D Alkaline Phosphatase 97 Total Protein 6.5 D Albumin 3.1 L D HOSPITAL COURSE: Date of Admission:10/11/16 Date of Discharge: 10/20/16 ASSESSMENT/PLAN: Patient is a 36 year old male with a significant past medical history of nasopharyngeal carcinoma in 2011, s/p chemotherapy and radiation. He presented to the ED with nausea, vomiting, diarrhea after accidentally taking a double dose of Augmentin for a sinus infection. On admission to the ED his sodium levels were noted to be 113 and was admitted to the ICU or closer monitoring. He was transferred back to Med Surg on 10/13/2016 when his sodium levels improved , However, on 10/16/2016 he was transferred back to the ICU after his sodium levels were 117 and started on 3% saline therapy. 10/18/2016 when his sodium levels improved and was transferred back to a medical surgical floor. Imaging: Chest CT 10/17/2016 - Normal CT, no evidence of metastatic disease or acute pathology Brain MRI 10/16/2016 - No acute intracranial pathology. Sinusitits with air fluid levels in the maxillary area Nasal Endoscopy 10/18/2016 - No lesions noted on nasal endoscopy Electrolytes: Hyponatremia - improving, now 133 Assessment/Plan: To continue on Sodium 1 gram tablets twice per day as outpt., and follow up with Dr. Link next week. He remains asymptomatic, close renal follow up as outpatient Head/Neck Sinusitis - improved Assessment/Plan: Monitor off antibiotics Seen by ENT on 10/18, and a nasal endoscopy was performed. No lesions noted on nasal endoscopy He remains afebrile, WBC stable, monitor off antibiotics Oncology: Nasopharyngeal carcinoma - chronic Assessment/Plan: He is s/p chemo and radiation at [facility] on 2011 No active treatment at this time He will follow up as outpatient with his oncologist Hematology: Anemia - acute Assessment/Plan: Monitor h/h closely, trending down, low but stable No signs of bleeding noted, likely dilutional GI: Gastroenteritis - resolved Assessment/Plan: Nausea, vomiting, diarrhea, resolved Tolerating diet, no diarrhea reported disposition: discharge home today with close monitoring by renal next week ( Dr. Link), pt is asking for PCP referrals will refer him to PCPs in [place]. CDs to be provided and facilitated by RN. Minutes to complete discharge: 60 Discharge Summary Reason For Visit: GASTROENTERITIS,HYPONATEMIA Current Active Problems Abdominal pain (Acute) Anemia (Acute) Chills (Acute) Dehydration (Acute) Hyperkalemia (Acute) Hyponatremia (Acute) Nausea, vomiting and diarrhea (Acute) Sinusitis, acute (Acute) History of nasopharyngeal cancer (Chronic) - Instructions Diet, Activity, Other Instructions: Please continue the sodium tablets as prescribed and follow up with Dr. Link next week as discussed. You will need your CDs with all of you imaging so that you can follow up with your physician at [facility]. Please return if you experience any of the following: Abdominal pain Dizziness Shortness of breath Weakness headaches Referrals: Morris Baker MD [Non Staff, Medical] - Reginaldo Waters MD [Staff Physician] - STAFF,NOT ON [Primary Care Provider] - Tao Link MD [Staff Physician] - Disposition: HOME - Home Medications Comprehensive Discharge Medication List: Ambulatory Orders Amoxicillin/Potassium Clav [Amox-Clav 875-125 mg Tablet] 1 each PO BID 10/11/16 This patient is new to me today: No Emergency Visit: Yes ED Registration Date: 10/11/16 Care time: The patient presented to the Emergency Department on the above date and was hospitalized for further evaluation of their emergent condition. Critical Care patient: No - Discharge Referral Referred to [facility] Med P.C.: No
--- NOTE | 2016-10-20 12:56 | PN ---
Progress Note, Physician History of Present Illness: Pt seen and examined at bedside. He is awake and alert. He is eager to go home. He feels well. The diarrhea and vomiting have resolved. - Current Medication List Current Medications: Active Medications Acetaminophen (Tylenol -) 650 mg PO Q4H PRN PRN Reason: FEVER OR PAIN Heparin Sodium (Porcine) (Heparin -) 5,000 unit SQ TID [facility] Last Admin: 10/20/16 06:16 Dose: 5,000 unit Sodium Chloride (Normal Saline -) 1,000 mls @ 85 mls/hr IV ASDIR [facility] Last Admin: 10/20/16 02:41 Dose: 85 mls/hr Ondansetron HCl (Zofran Injection) 4 mg IVPB Q4H PRN PRN Reason: NAUSEA Last Admin: 10/20/16 10:37 Dose: 4 mg Pseudoephedrine HCl (Sudafed -) 60 mg PO Q6H PRN PRN Reason: CONGESTION Sodium Chloride (Sodium Chloride Tablet -) 1 gm PO BID [facility] Last Admin: 10/20/16 10:32 Dose: 1 gm - Objective Vital Signs: Vital Signs Temperature 98.9 F 10/20/16 10:00 Pulse Rate 71 10/20/16 10:00 Respiratory Rate 20 10/20/16 10:00 Blood Pressure 136/77 10/20/16 10:00 O2 Sat by Pulse Oximetry (%) 100 10/19/16 21:00 Constitutional: Yes: Calm Eyes: Yes: Conjunctiva Clear HENT: Yes: Atraumatic Neck: Yes: Supple Cardiovascular: Yes: S1, S2 Respiratory: Yes: CTA Bilaterally Gastrointestinal: Yes: Normal Bowel Sounds, Soft Genitourinary: Yes: WNL Musculoskeletal: Yes: WNL Edema: No Neurological: Yes: Oriented Psychiatric: Yes: Oriented Labs: CBC, BMP 10/20/16 05:15 10/20/16 05:15 Problem List - Problems (1) Abdominal pain Code(s): R10.9 - UNSPECIFIED ABDOMINAL PAIN Qualifiers: Abdominal location: epigastric Qualified Code(s): R10.13 - Epigastric pain (2) Chills Code(s): R68.83 - CHILLS (WITHOUT FEVER) (3) Hyponatremia Code(s): E87.1 - HYPO-OSMOLALITY AND HYPONATREMIA (4) Nausea, vomiting and diarrhea Code(s): R11.2 - NAUSEA WITH VOMITING, UNSPECIFIED R19.7 - DIARRHEA, UNSPECIFIED (5) History of nasopharyngeal cancer Code(s): Z85.819 - PRSNL HX OF MALIG NEOPLM OF UNSP SITE LIP,ORAL CAV,& PHARYNX (6) Anemia Code(s): D64.9 - ANEMIA, UNSPECIFIED (7) Hyperkalemia Code(s): E87.5 - HYPERKALEMIA Assessment/Plan Current Medications Generic Name Dose Route Start Last Admin Trade Name Freq PRN Reason Stop Dose Admin Acetaminophen 650 mg 10/18/16 17:33 Tylenol - PO Q4H PRN FEVER OR PAIN Heparin Sodium (Porcine) 5,000 unit 10/18/16 22:00 10/20/16 06:16 Heparin - SQ 5,000 unit TID MAHAD Administration Sodium Chloride 1,000 mls @ 85 mls/hr 10/19/16 18:44 10/20/16 02:41 Normal Saline - IV 85 mls/hr ASDIR MAHAD Administration Ondansetron HCl 4 mg 10/18/16 17:33 10/20/16 10:37 Zofran Injection IVPB 4 mg Q4H PRN Administration NAUSEA Pseudoephedrine HCl 60 mg 10/18/16 17:33 Sudafed - PO Q6H PRN CONGESTION Sodium Chloride 1 gm 10/19/16 22:00 10/20/16 10:32 Sodium Chloride Tablet - PO 1 gm BID MAHAD Administration Impression 1. hyponatremia 2. hyperkalemia 3. anemia 4. history of nasopharyngeal cancer 5. diarrhea 6. vomiting 7. leukopenia Plan - sodium has been stable - recommend continuing salt tabs on discharge, can take twice per day - pt can come to the office on Sunday for bloodwork and I can see him on Sunday - encourage PO intake - keep on free water restriction - dvt prophylaxis - will follow closely Thank you for this consultation Dr Link
[2016-10-20 14:30] VITALS: BP 135/91; PULSE 79; TEMP 98.7
== END 2016-10-20 14:49 | disposition home or self-care (01) | DRG 641 ==
LOC: JER 10:23 → JERBED 12:24 → JICU 20:43 → J6S 10-13 20:57 → JICU 10-16 05:00 → J5S 10-18 11:52
PROVIDERS: ADMIT Internal Medicine; ATTEND Nurse Practitioner Family
PROC: 0CJY8ZZ Inspection of Mouth and Throat, Via Natural or Artificial Opening Endoscopic (ICD-10-PCS; principal; 2016-10-18)
DX: E87.1 Hypo-osmolality and hyponatremia (principal); K52.89 Other specified noninfective gastroenteritis and colitis; I44.0 Atrioventricular block, first degree; R11.2 Nausea with vomiting, unspecified; E87.5 Hyperkalemia; J01.90 Acute sinusitis, unspecified; D64.9 Anemia, unspecified; R68.83 Chills (without fever); D72.818 Other decreased white blood cell count; R10.13 Epigastric pain; E86.0 Dehydration; F41.8 Other specified anxiety disorders; H61.23 Impacted cerumen, bilateral; J34.2 Deviated nasal septum; Z85.22 Personal history of malignant neoplasm of nasal cavities, middle ear, and accessory sinuses
CPT/HCPCS: 36415; 70551-TC; 71020-TC; 71250-TC; 74176-TC; 80048; 80053; 81003; 82436; 82533; 82550; 82553; 82570; 82728; 83540; 83690; 83735; 83930; 83935; 84100; 84133; 84300; 84439; 84443; 84481; 84484; 85025; 85027; 87254; 87804; 93005; 93010; 94640; 99284-25; J1644; Q9967